=== PATIENT | male | born 1975 | race African-American/Black ===

== ENCOUNTER 2017-09-01 15:56 | Emergency (ER) | payer OTHER, SELFPAY ==
[2017-09-01] MEDS ORDERED: CYCLOBENZAPRINE 10 MG TAB ONE (17:01)
[2017-09-01] MEDS ORDERED: HYDROCODONE/APAP 10/325 TAB ONE (17:01)
[2017-09-01] MEDS ORDERED: KETOROLAC 30 MG/ML INJ ONE (17:01)
--- NOTE | 2017-09-01 17:41 | ER ---
Nurse's Notes [facility] Name: Yo Luis Age: 42 yrs Sex: Male : 1975 Arrival Date: 09/01/2017 Time: 15:59 Bed 27 Private MD: None, None Diagnosis: Strain of muscle and tendon of back wall of thorax;Strain of muscle and tendon of front wall of thorax Presentation: 09/01 16:01 Presenting complaint: Patient states: pain to left lateral aspect of chest that began aa5 Thursday. Pt denies SOB, denies cough. Pt denies known injury. Transition of care: patient was not received from another setting of care. Onset of symptoms was August 2017. Risk Assessment: Do you want to hurt yourself or someone else? Patient reports no desire to harm self or others. Initial Sepsis Screen: Does the patient meet any 2 criteria? No. Patient's initial sepsis screen is negative. Does the patient have a suspected source of infection? No. Patient's initial sepsis screen is negative. Care prior to arrival: None. 16:01 Method Of Arrival: Ambulatory aa5 16:01 Acuity: KENIA 3 aa5 Triage Assessment: 17:11 General: Appears in no apparent distress. well groomed, well developed, well nourished, rk2 Behavior is calm, cooperative. Pain: Complains of pain in left rib pain on palpation or with deep inspiration. Neuro: Level of Consciousness is alert, obeys commands, Oriented to person, place, time, situation. Respiratory: Airway is patent Respiratory effort is even, unlabored, Respiratory pattern is regular, symmetrical. Derm: Skin is pink, warm \T\ dry. Historical: - Allergies: 16:03 No Known Allergies; aa5 - PMHx: 16:03 Hypertension; Diabetes - NIDDM; aa5 - PSHx: 16:03 Hernia repair; aa5 - Immunization history:: Adult Immunizations unknown. - Social history:: Smoking status: Patient/guardian denies using tobacco. - Ebola Screening: : No symptoms or risks identified at this time. Screenin:10 Abuse screen: Denies threats or abuse. Nutritional screening: No deficits noted. rk2 Tuberculosis screening: No symptoms or risk factors identified. Fall Risk None identified. Assessment: 17:36 Reassessment: Pt. resting in room, pain has improved after medication... no needs rk2 voiced \T\ this time. 18:15 Reassessment: Pt has elevated BP \T\ DC... provider aware. Verbal order given for 0.1 mg rk2 clonidine. Vital Signs: 16:03 BP 185 / 117; Pulse 100; Resp 18 S; Temp 98.9(TE); Pulse Ox 97% on R/A; Weight 112.04 aa5 kg (R); Height 6 ft. 4 in. (193.04 cm) (R); Pain 8/10; 17:47 BP 196 / 118; Pulse 91; Resp 18; Pulse Ox 98% on R/A; rk2 18:30 BP 179 / 105; Pulse 86; Resp 17; Pulse Ox 97% on R/A; rk2 16:03 Body Mass Index 30.07 (112.04 kg, 193.04 cm) aa5 ED Course: 15:59 Patient arrived in ED. sb2 15:59 None, None is Private Physician. sb2 16:03 Triage completed. aa5 16:03 Arm band placed on. aa5 16:07 Kj Santiago NP is PHCP. pm1 16:07 Josse Cornejo MD is Attending Physician. pm1 16:32 Judy Saavedra, NORAH is Primary Nurse. rk2 17:10 Patient has correct armband on for positive identification. Bed in low position. Call rk2 light in reach. 18:39 No provider procedures requiring assistance completed. Patient did not have IV access rk2 during this emergency room visit. Administered Medications: 17:09 Drug: Bancroft 10 mg-325 mg 1 tabs Route: PO; rk2 18:40 Follow up: Response: No adverse reaction rk2 17:09 Drug: TORadol 60 mg Route: IM; Site: right deltoid; rk2 18:40 Follow up: Response: No adverse reaction rk2 17:10 Drug: Flexeril 10 mg Route: PO; rk2 18:40 Follow up: Response: No adverse reaction rk2 18:02 Drug: Catapres 0.1 mg Route: PO; rk2 18:37 Follow up: Response: No adverse reaction rk2 Outcome: 17:40 Discharge ordered by . pm1 18:39 Discharged to home ambulatory. rk2 18:39 Condition: improved 18:39 Discharge instructions given to patient, Prescriptions given X 3. 18:41 Patient left the ED. rk2 Signatures: Lesly Rosales RN RN aa5 Kj Santiago, CLAY DRY PRESS HELPER CLAY DRY PRESS HELPER pm1 Judy Saavedra RN RN rk2 Holli Rai sb2
--- NOTE | 2017-09-01 17:41 | EDPHYS ---
Physician Documentation [facility] Name: Yo Luis Age: 42 yrs Sex: Male : 1975 Arrival Date: 09/01/2017 Time: 15:59 Bed 27 Private MD: None, None ED Physician Josse Cornejo HPI: 09/01 17:00 This 42 yrs old Black Male presents to ER via Ambulatory with complaints of Left Rib pm1 Pain. 17:00 Onset: The symptoms/episode began/occurred 2 day(s) ago. The patient has not pm1 experienced similar symptoms in the past. The patient has not recently seen a physician. Patient with left rib and back pain onset Thursday from work related injury. 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 Patient felt the strain to his left rib area and left latissimus dorsi with ensuing pain. Patient did not want to report the injury in fear of getting fired and present here to the ER for treatment. No chest pain, shortness of breath, or fever. Historical: - Allergies: 16:03 No Known Allergies; aa5 - PMHx: 16:03 Hypertension; Diabetes - NIDDM; aa5 - PSHx: 16:03 Hernia repair; aa5 - Immunization history:: Adult Immunizations unknown. - Social history:: Smoking status: Patient/guardian denies using tobacco. - Ebola Screening: : No symptoms or risks identified at this time. ROS: 17:00 Constitutional: Negative for fever, chills, and weight loss, Eyes: Negative for injury, pm1 pain, redness, and discharge, ENT: Negative for injury, pain, and discharge, Neck: Negative for injury, pain, and swelling, Cardiovascular: Negative for chest pain, palpitations, and edema, Respiratory: Negative for shortness of breath, cough, wheezing, and pleuritic chest pain, Abdomen/GI: Negative for abdominal pain, nausea, vomiting, diarrhea, and constipation. 17:00 : Negative for injury, bleeding, discharge, and swelling, MS/Extremity: Negative for injury and deformity, Skin: Negative for injury, rash, and discoloration, Neuro: Negative for headache, weakness, numbness, tingling, and seizure. 17:00 Back: Positive for of the left subscapular area and left lateral ribs. Exam: 17:00 Constitutional: This is a well developed, well nourished patient who is awake, alert, pm1 and in no acute distress. Head/Face: Normocephalic, atraumatic. Eyes: Pupils equal round and reactive to light, extra-ocular motions intact. Lids and lashes normal. Conjunctiva and sclera are non-icteric and not injected. Cornea within normal limits. Periorbital areas with no swelling, redness, or edema. ENT: Nares patent. No nasal discharge, no septal abnormalities noted. Tympanic membranes are normal and external auditory canals are clear. Oropharynx with no redness, swelling, or masses, exudates, or evidence of obstruction, uvula midline. Mucous membranes moist. Neck: Trachea midline, no thyromegaly or masses palpated, and no cervical lymphadenopathy. Supple, full range of motion without nuchal rigidity, or vertebral point tenderness. No Meningismus. 17:00 Cardiovascular: Regular rate and rhythm with a normal S1 and S2. No gallops, murmurs, or rubs. Normal PMI, no JVD. No pulse deficits. Respiratory: Lungs have equal breath sounds bilaterally, clear to auscultation and percussion. No rales, rhonchi or wheezes noted. No increased work of breathing, no retractions or nasal flaring. Abdomen/GI: Soft, non-tender, with normal bowel sounds. No distension or tympany. No guarding or rebound. No evidence of tenderness throughout. 17:00 Skin: Warm, dry with normal turgor. Normal color with no rashes, no lesions, and no evidence of cellulitis. MS/ Extremity: Pulses equal, no cyanosis. Neurovascular intact. Full, normal range of motion. 17:00 Chest/axilla: Inspection: normal, Palpation: crepitus, is not appreciated, tenderness, that totally reproduces the patient's complaints, Focal left lateral ribs. 17:00 Back: normal spinal alignment noted, vertebral tenderness, is not appreciated, muscle spasm, is appreciated in the left subscapular area, left lattissimus dorsi. 17:00 Neuro: Orientation: is normal, Motor: moves all fours, strength is 5/5 in all extremities, Gait: Vital Signs: 16:03 BP 185 / 117; Pulse 100; Resp 18 S; Temp 98.9(TE); Pulse Ox 97% on R/A; Weight 112.04 aa5 kg (R); Height 6 ft. 4 in. (193.04 cm) (R); Pain 8/10; 17:47 BP 196 / 118; Pulse 91; Resp 18; Pulse Ox 98% on R/A; rk2 18:30 BP 179 / 105; Pulse 86; Resp 17; Pulse Ox 97% on R/A; rk2 16:03 Body Mass Index 30.07 (112.04 kg, 193.04 cm) aa5 MDM: 16:49 Patient medically screened. pm1 17:36 Data reviewed: vital signs. Data interpreted: Pulse oximetry: on room air is 97 %. pm1 Interpretation: normal. Counseling: I had a detailed discussion with the patient and/or guardian regarding: the historical points, exam findings, and any diagnostic results supporting the discharge/admit diagnosis, the need for outpatient follow up, to return to the emergency department if symptoms worsen or persist or if there are any questions or concerns that arise at home. 18:09 ED course: Patient normally takes his lisinopril each morning. Patient forgot today. pm1 Patient has his lisinopril at home. Patient requested medication for blood pressure. Administered Medications: 17:09 Drug: Cameron 10 mg-325 mg 1 tabs Route: PO; rk2 18:40 Follow up: Response: No adverse reaction rk2 17:09 Drug: TORadol 60 mg Route: IM; Site: right deltoid; rk2 18:40 Follow up: Response: No adverse reaction rk2 17:10 Drug: Flexeril 10 mg Route: PO; rk2 18:40 Follow up: Response: No adverse reaction rk2 18:02 Drug: Catapres 0.1 mg Route: PO; rk2 18:37 Follow up: Response: No adverse reaction rk2 Disposition: 09/01/17 17:40 Discharged to Home. Impression: Strain of muscle and tendon of back wall of thorax, Strain of muscle and tendon of front wall of thorax. - Condition is Stable. - Discharge Instructions: Muscle Strain. - Prescriptions for Naprosyn 500 mg Oral Tablet - take 1 tablet by ORAL route 2 times per day take with food; 30 tablet. Tylenol- Codeine #3 300-30 mg Oral Tablet - take 2 tablets by ORAL route every 6 hours As needed; 20 tablet. Cyclobenzaprine 10 mg Oral Tablet - take 1 tablet by ORAL route every 8 hours As needed; 30 tablet. - Medication Reconciliation Form, Thank You Letter, Prescription Opioid Use, Work release form form. - Follow up: Emergency Department; When: As needed; Reason: Worsening of condition. Follow up: Private Physician; When: 2 - 3 days; Reason: Recheck today's complaints, Continuance of care, Re-evaluation by your physician. - Problem is new. - Symptoms have improved. Addendum: 09/03/2017 12:18 Co-signature as Attending Physician, Josse Cornejo MD. g s Signatures: Lesly Rosales RN RN aa5 Kj Santiago, EVE SPORTS MANAGER pm1 Josse Cornejo MD MD Judy Saavedra RN RN rk2 Corrections: (The following items were deleted from the chart) 09/01 18:41 17:40 09/01/2017 17:40 Discharged to Home. Impression: Strain of muscle and tendon of rk2 back wall of thorax; Strain of muscle and tendon of front wall of thorax. Condition is Stable. Forms are Medication Reconciliation Form, Thank You Letter, Antibiotic Education, Prescription Opioid Use. Follow up: Emergency Department; When: As needed; Reason: Worsening of condition. Follow up: Private Physician; When: 2 - 3 days; Reason: Recheck today's complaints, Continuance of care, Re-evaluation by your physician. Problem is new. Symptoms have improved. pm1
[2017-09-01] MEDS ORDERED: cloNIDine HCl 0.1 MG TAB ONE (18:02)
== END 2017-09-01 18:41 | disposition home or self-care (01) ==
LOC: ER 15:56
DX: S29.012A Strain of muscle and tendon of back wall of thorax, initial encounter (principal); I10 Essential (primary) hypertension; E11.9 Type 2 diabetes mellitus without complications; X58.XXXA Exposure to other specified factors, initial encounter; Y93.89 Activity, other specified; Y92.9 Unspecified place or not applicable; Y99.0 Civilian activity done for income or pay
CPT/HCPCS: 96372; 99283

== ENCOUNTER 2022-03-28 13:35 | Emergency (ER) | payer SELFPAY ==
--- OUTSIDE RECORDS SUMMARY | 2022-03-28 13:41 | XMS REPORT | Continuity of Care Document ---
:[address] [facility] t Address [address] [place] [address] Care Team Providers Name Role Phone CHARLENE Attending Clinician Unavailable JoseL Downey Attending Clinician [phone] CHARLENE Admitting Clinician Unavailable Payers Payer Name Policy Type Policy Number Effective Date Expiration Date S ource Problems Condition Condition Condition Status Onset Resolution Last Treating Co mments Source Name Details Category Date Date Treatment Clinician Date Diabetes Diabetes Problem Active Sween y mellitus Mellitus 12-05 Commun i 00:00: ty [facility] Body mass Body Mass Problem Active Swe suzan index 30+ Index 30+ 9-08 Comm uni - obesity - Obesity 00:00: ty 00 [facility] Hypertensi Hypertensi Problem Active S weeny ve ve 12-05 Communi disorder Disorder 00:00: ty 00 [facility] Erectile Erectile Problem Active Sween y dysfunctio Dysfunctio 12-05 Co mmuni n n 00:00: [facility] Allergies, Adverse Reactions, Alerts This patient has no known allergies or adverse reactions. Social History Smoking Status Start Date Stop Date Source Never Smoker [facility] Medications Ordered Filled Start Stop Current Ordering Indication Dosage Frequency Signature Comments Components Source Medication Medication Date Date Medication? Clinician (SIG) Name Name Coreg 6.25 Coreg 6.25 No 1 BID Coreg 6.25 [place] mg tablet mg tablet mg tablet Communi Take 1 Take 1 Take 1 ty tablet tablet tablet Hospita twice a day twice a day twice a l by oral by oral day by Clinics route. route. oral route. Coreg 12.5 Coreg 12.5 No 1 BID Coreg 12.5 [place] mg tablet mg tablet mg tablet Communi Take 1 Take 1 Take 1 ty tablet tablet tablet Hospita twice a day twice a day twice a l by oral by oral day by Clinics route. route. oral route. Coreg 6.25 Coreg 6.25 No 1 BID Coreg 6.25 [facility] mg tablet mg tablet mg tablet Gordon Take 1 Take 1 Take 1 ty tablet tablet tablet Hospita twice a day twice a day twice a l by oral by oral day by Clinics route. route. oral route. Vital Signs Vital Name Observation Time Observation Value Comments Source BP Diastolic 2021-12-12 00:00:00 77 mm[Hg] [facility] Height 2021-12-12 00:00:00 76 [in_i] [facility] BMI (Body Mass 2021-12-12 00:00:00 29.8 kg/m2 [facility] BP Systolic 2021-12-12 00:00:00 150 mm[Hg] [facility] Body Weight 2021-12-12 00:00:00 3920 [oz_av] [facility] BP Diastolic 2021-12-05 00:00:00 98 mm[Hg] [facility] Height 2021-12-05 00:00:00 76 [in_i] [facility] BMI (Body Mass 2021-12-05 00:00:00 30.1 kg/m2 [facility] BP Systolic 2021-12-05 00:00:00 162 mm[Hg] [facility] Body Weight 2021-12-05 00:00:00 3952 [oz_av] [facility] Procedures This patient has no known procedures. Plan of Care Planned Activity Planned Date Details Comments Source Diagnostic Test 2021-12-05 CMP, serum or [facility] Pending 00:00:00 plasma [code = Hospital Clin ics CMP, serum or plasma] Diagnostic Test 2021-12-05 HbA1c (hemoglobin [facility] Pending 00:00:00 A1c), blood [code Hospital [facility]ics = HbA1c (hemoglobin A1c), blood] Diagnostic Test 2021-12-05 TSH, serum or [facility] Pending 00:00:00 plasma [code = Hospital Clin ics TSH, serum or plasma] Diagnostic Test 2021-12-05 CBC w/ auto diff [facility] Pending 00:00:00 [code = CBC w/ Hospital Clin ics auto diff] Diagnostic Test 2021-12-05 PSA, total, serum [facility] Pending 00:00:00 or plasma [code = Hospital C linics PSA, total, serum or plasma] Diagnostic Test 2021-12-05 lipid panel, serum [facility] Pending 00:00:00 [code = lipid Hospital Clini cs panel, serum] Encounters Start End Encounter Admission Attending Care Care Encounter Source Date/Time Date/Time Type Type Clinicians Facility Department ID 2021-12-17 2021-12-17 Outpatient DENAE_Ezio [facility] [id number] [place] 00:00:00 00:00:00 0920 [facility] 2021-12-12 2021-12-[address] [facility] [id number] [place] 00:00:00 00:00:00 0915 Commun i ty Hospita l [facility] 2021-12-12 2021-12-12 Jose L [facility] [place] - [place] 00:00:00 00:00:00 [facility] DO: [address] [facility] [address], HOSPITAL Clinic [place], [place], [address] DENAE , Ph. [phone] 2021-12-12 2021-12-[address] [facility] [id number] 00:00:00 00:00:00 Jose L [id number] 2021-12-05 2021-12-[address] [facility] [id number] 00:00:00 00:00:00 0908 Commun i ty Hosp[facility] l Clinics 2021-12-05 2021-12-05 [facility] [place] [facility] [place] 00:[facility]:00 00:00:00 [facility] DO: [address] [facility] [address], HOSPITAL Clinic [place], [place], [address] DENAE , Ph. [phone] 2021-12-05 2021-12-05 [facility] [id number] [facility]:00 00:00:00 Jose L [id number] Results This patient has no known results.
[2022-03-28] MEDS ORDERED: METOPROLOL TAR 25 MG TAB ONE (15:58)
[2022-03-28] MEDS ORDERED: ASPIRIN 81 MG CHEWABLE TABLET ONE (15:58)
[2022-03-28] MEDS ORDERED: cloNIDine HCL 0.1 MG TAB ONE (17:00)
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
--- NOTE | 2022-03-28 17:34 | ER ---
Nurse's Notes [facility] Name: Yo Luis Age: 46 yrs Sex: Male : 1975 Arrival Date: 03/28/2022 Time: 13:38 Bed 20 Private MD: Diagnosis: Essential (primary) hypertension-uncontrolled Presentation: 03/28 13:44 Chief complaint: Sent by [facility] for abnormal EKG. Pt denies SOB/CP. hb Coronavirus screen: At this time, the client does not indicate any symptoms associated with coronavirus-19. Risk Assessment: Do you want to hurt yourself or someone else? Patient reports no desire to harm self or others. Onset of symptoms was March 28, 2022. 13:44 Method Of Arrival: Ambulatory hb 13:44 Acuity: KENIA 3 hb 13:55 Ebola Screen: No symptoms or risks identified at this time. Initial Sepsis Screen: Does hb the patient meet any 2 criteria? No. Patient's initial sepsis screen is negative. Does the patient have a suspected source of infection? No. Patient's initial sepsis screen is negative. Historical: - Allergies: 13:54 No Known Allergies; hb - Home Meds: 13:54 carvedilol 12.5 mg oral tab 2 times per day [Active]; Aspirin Oral [Active]; hb - PMHx: 13:54 Diabetes - NIDDM; Hypertension; hb Screenin:[address] [facility] ED Fall Risk Assessment (Adult) History of falling in the last 3 months, mb9 including since admission No falls in past 3 months (0 pts) Confusion or Disorientation No (0 pts) Intoxicated or Sedated No (0 pts) Impaired Gait No (0 pts) Mobility Assist Device Used No (0 pt) Altered Elimination No (0 pt) Score/Fall Risk Level 0 - 2 = Low Risk Maintained a safe environment. Abuse screen: Denies threats or abuse. Nutritional screening: No deficits noted. Tuberculosis screening: No symptoms or risk factors identified. Assessment: 15:30 Reassessment: pt brought back to room. mb9 15:45 General: Appears in no apparent distress. comfortable, Behavior is calm, cooperative, mb9 appropriate for age. Pain: Denies pain. Neuro: Salomon Agitation-Sedation Scale (RASS): 0 - Alert and Calm Level of Consciousness is awake, alert, obeys commands, Oriented to person, place, time, situation, Appropriate for age Moves all extremities. Gait is steady, Speech is normal, Facial symmetry appears normal, Pupils are PERRLA, Intact Denies blurred vision dizziness, headache. Cardiovascular: Denies chest pain, Heart tones S1 S2 present Rhythm is sinus tachycardia. Respiratory: Airway is patent Respiratory effort is even, Respiratory pattern is tachypnea Breath sounds are clear bilaterally. GI: Abdomen is flat. : No signs and/or symptoms were reported regarding the genitourinary system. EENT: No signs and/or symptoms were reported regarding the EENT system. Derm: Skin is intact, Skin is dry, Skin is normal, Skin temperature is warm. 16:59 Pain: Denies pain. Neuro: Level of Consciousness is awake, alert, obeys commands, mb9 Oriented to person, place, time, situation, Appropriate for age Denies blurred vision dizziness, headache. Cardiovascular: Rhythm is sinus tachycardia. Respiratory: Airway is patent. Respiratory: pt intermittently coughing. Derm: Skin is intact, Skin is dry, Skin is normal, Skin temperature is warm. 17:35 Reassessment: No changes from previously documented assessment. Patient denies pain at mb9 this time. Patient states feeling better. Patient states symptoms have improved. Respiratory: Airway is patent. Vital Signs: 13:44 BP 178 / 108; Pulse 102; Resp 18; Temp 98.3; Pulse Ox 100% on R/A; Weight 109.32 kg; hb Height 6 ft. 5 in. (195.58 cm); Pain 0/10; 15:57 BP 185 / 115; Pulse 108; Resp 22; Pulse Ox 100% on R/A; mb9 16:41 BP 179 / 118; Pulse 104; Resp 20; Pulse Ox 100% on R/A; mb9 17:16 BP 167 / 118; Pulse 102; Resp 16; Pulse Ox 100% on R/A; Pain 0/10; mb9 17:50 BP 165 / 115; Pulse 102; Resp 18; Pulse Ox 100% ; mb9 13:44 Body Mass Index 28.58 (109.32 kg, 195.58 cm) ED Course: 13:38 Patient arrived in ED. rg4 13:51 Lorena Fitzgerald FNP-C is [facility]. snw 13:51 Oliverio Raza MD is Attending Physician. snw 13:54 Triage completed. hb 13:55 Arm band placed on. hb 13:57 EKG completed in triage. Results shown to MD. hb 14:00 Placed in gown. Bed in low position. Call light in reach. Side rails up X 1. mb9 15:49 Daphne Osborne, RN is Primary Nurse. mb9 16:05 Troponin High Sensitivity Sent. mb9 17:52 No provider procedures requiring assistance completed. Patient did not have IV access mb9 during this emergency room visit. Administered Medications: 15:57 Drug: Aspirin 81 mg Route: PO; mb9 16:28 Follow up: Response: No adverse reaction mb9 15:57 Drug: Metoprolol 25 mg Route: PO; mb9 16:28 Follow up: Response: No adverse reaction mb9 16:59 Drug: cloNIDine 0.2 mg Route: PO; mb9 17:14 Follow up: Response: No adverse reaction mb9 17:50 Drug: Norvasc (amlodipine) 2.5 mg Route: PO; mb9 Medication: 17:52 VIS not applicable for this client. mb9 Outcome: 17:33 Discharge ordered by MD. snw 17:52 Discharged to home ambulatory. mb9 17:52 Condition: stable 17:52 Discharge instructions given to patient, Instructed on discharge instructions, follow up and referral plans. Demonstrated understanding of instructions, follow-up care, medications, Prescriptions given X 1. 17:52 Patient left the ED. mb9 Signatures: Lorena Fitzgerald, SOFTWARE LICENSING EXECUTIVE-C SOFTWARE LICENSING EXECUTIVE-Csnw Gloria Singleton RN RN Dilcia Sheehan rg4 Daphne Osborne, RN RN mb9 Corrections: (The following items were deleted from the chart) 13:56 13:44 BP 178 / 108; Pulse 102bpm; Resp 18bpm; Pulse Ox 100% RA; Temp 98.3F; Pain 0/10; hb hb
[2022-03-28] MEDS ORDERED: AMLODIPINE 5 MG TAB ONE (17:47)
[2022-03-28 18:18] VITALS: TEMP 98.3; O2SAT 100
[2022-03-28 18:23] VITALS: BP 165/115
--- NOTE | 2022-03-30 19:08 | EKG ---
Test Date: 2022-03-28 Test Time: 13:51:29 Residential Door Unit Installer: HB MEASUREMENT RESULTS: Intervals: Rate: 107 OK: 164 QRSD: 110 QT: 366 QTc: 488 [place]: P: 47 OK: 164 QRS: 6 T: 87 INTERPRETIVE STATEMENTS: Sinus tachycardia Possible Left atrial enlargement Nonspecific T wave abnormality Abnormal ECG No previous ECG available for comparison Electronically Signed On 03-30-22 19:07:07 SOCIAL SCIENCE TEACHER by Paul Galeana
== END 2022-03-28 17:52 | disposition home or self-care (01) ==
LOC: ER 13:35
DX: I10 Essential (primary) hypertension (principal); E11.9 Type 2 diabetes mellitus without complications; Z79.82 Long term (current) use of aspirin
CPT/HCPCS: 36415; 84484; 93005; 99284

== ENCOUNTER 2023-09-03 13:09 | Inpatient (IN) | payer OTHER, SELFPAY ==
--- OUTSIDE RECORDS SUMMARY | 2023-09-03 13:12 | XMS REPORT | Continuity of Care Document ---
Author Name Unknown Address [address] [facility] [address] [place] [address] [facility] thconnect Address [address] [facility] [address] [place] [address] Care Team Providers Care Electrical Tests Supervisor Name Role Phone CHARLENE Attending Clinician Unavailable Jose L Philippe Attending Clinician [phone] CHARLENE Admitting Clinician Unavailable Payers Payer Name Policy Type Policy Number Effective Date Expirati on Date Source Problems Condition Name Condition Details Condition Category Status Onset Date Resolution Date Last Treatment Date Treating Clinician Comments Source Diabetes mellitus Diabetes Mellitus Problem Active 12-05 00:00: 00 [facility] Body mass index 30+ - obesity Body Mass Index 30+ - Obesity Problem Active 12-05 00:00: 00 [facility] Hypertensi ve disorder Hypertensi ve Disorder Problem Active 12-05 00:00: 00 [facility] Erectile dysfunctio n Erectile Dysfunctio n Problem Active 12-05 00:00: 00 [facility] Social History Smoking Status Start Date Stop Date Source Never Smoker [facility] Medications Ordered Medication Name Filled Medication Name Start Date Stop Date Current Medication? Ordering Clinician Indication Dosage Frequency Signature (SIG) Comments Components Source Coreg 6.25 mg tablet Take 1 tablet twice a day by oral route. Coreg 6.25 mg tablet Take 1 tablet twice a day by oral route. No 1 BID Coreg 6.25 mg tablet Take 1 tablet twice a day by oral route. [facility] Coreg 12.5 mg tablet Take 1 tablet twice a day by oral route. Coreg 12.5 mg tablet Take 1 tablet twice a day by oral route. No 1 BID Coreg 12.5 mg tablet Take 1 tablet twice a day by oral route. [facility] Coreg 6.25 mg tablet Take 1 tablet twice a day by oral route. Coreg 6.25 mg tablet Take 1 tablet twice a day by oral route. No 1 BID Coreg 6.25 mg tablet Take 1 tablet twice a day by oral route. [facility] Vital Signs Vital Name Observation Time Observation Value Comments S ource BP Diastolic 2021-12-12 00:00:00 77 mm[Hg] [facility] Height 2021-12-12 00:00:00 76 [in_i] [facility] BMI (Body Mass Index) 2021-12-12 00:00:00 29.8 kg/m2 [facility] BP Systolic 2021-12-12 00:00:00 150 mm[Hg] [facility] Body Weight 2021-12-12 00:00:00 3920 [oz_av] [facility] BP Diastolic 2021-12-05 00:00:00 98 mm[Hg] [facility] Height 2021-12-05 00:00:00 76 [in_i] [facility] BMI (Body Mass Index) 2021-12-05 00:00:00 30.1 kg/m2 [facility] BP Systolic 2021-12-05 00:00:00 162 mm[Hg] [facility] Body Weight 2021-12-05 00:00:00 3952 [oz_av] [facility] Plan of Care Planned Activity Planned Date Details Comments Source Diagnostic Test Pending 2021-12-05 00:00:00 CMP, serum or plasma [code = CMP, serum or plasma] [facility] Diagnostic Test Pending 2021-12-05 00:00:00 HbA1c (hemoglobin A1c), blood [code = HbA1c (hemoglobin A1c), blood] [facility] Diagnostic Test Pending 2021-12-05 00:00:00 TSH, serum or plasma [code = TSH, serum or plasma] [facility] Diagnostic Test Pending 2021-12-05 00:00:00 CBC w/ auto diff [code = CBC w/ auto diff] [facility] Diagnostic Test Pending 2021-12-05 00:00:00 PSA, total, serum or plasma [code = PSA, total, serum or plasma] [facility] Diagnostic Test Pending 2021-12-05 00:00:00 lipid panel, serum [code = lipid panel, serum] [facility] Encounters Start Date/Time End Date/Time Encounter Type Admission Type Attending [facility] Care Department Encounter ID Source 2023-03-12 13:18:57 2023-03-12 13:18:57 Outpatient SFA SFA [id number] Mayco Kumar 2022-11-26 11:57:13 2022-11-26 11:57:13 Outpatient SFA SFA [id number] Mayco Kumar 2022-08-16 14:10:01 2022-08-16 14:10:01 Outpatient SFA SFA [id number] Mayco Kumar 2022-06-05 13:16:25 2022-06-05 13:16:25 Outpatient SFA SFA [id number] Mayco Kumar 2022-04-30 13:25:04 2022-04-30 13:25:04 Outpatient SFA SFA [id number] Mayco Kumar 2022-04-29 16:04:16 2022-04-29 16:04:16 Outpatient SFA SFA [id number] Mayco Kumar 2022-04-15 10:29:49 2022-04-15 10:29:49 Outpatient SFA SFA [id number] Mayco Bruce José 2021-12-17 00:00:00 2021-12-17 00:00:00 Outpatient ERICKSON_R [facility] [id number] [facility] 2021-12-12 00:00:00 2021-12-12 00:00:00 Outpatient ERICKSON_R [facility] [id number] [place] [facility] 2021-12-12 00:00:00 2021-12-12 00:00:00 Jose L Philippe, DO: [address] [place] [address] , Ph. [facility], DR. PHILIPPE [id number] [facility] 2021-12-12 00:00:00 2021-12-12 00:00:00 Outpatient Jose L Philippe [facility] [id number] 2021-12-05 00:00:00 2021-12-05 00:00:00 Outpatient CHARLENE [facility] [id number] [facility] 2021-12-05 00:00:00 2021-12-05 00:00:00 Jose L Philippe, DO: [address] [place] [address] , Ph. [phone] [facility], [address] PHILIPPE [id number] [facility] 2021-12-05 00:00:00 2021-12-05 00:00:00 Outpatient Jose L Philippe [facility] [id number] Results Test Description Test Time Test Comments Results Result Co mments Source COMPREHENSIVE METABOLIC [id number] 02:04:45* Test Item Value Reference Range Interpretation Comme nts GLUCOSE (test code = 2217) 210 MG/DL 70-99 H BUN (test code = 2208) 21 MG/DL 6-20 H CREATININE (test code = 2214) 1.62 MG/DL 0.80-1.40 H eGFR (2020 CKD-EPI) (test code = 78959) 53 ML/MIN/1.73 >60 L The NKF-ASN Taskforc e recommends use of Cystatin C to confirm eGFR inadults at risk for CKD. [facility] offers eGFR with Cystatin C-Creatinineusing the 2020 CKD-EPI eGFR_creat-cystat equation (order code 3057) toincrease the accuracy of estimated GFR. For more information, contactAiMeiWeiur sales account representative or see announcement [email or web address] CALC BUN/CREAT (test code = 2234) 13 RATIO 6-28 SODIUM (test code = 2230) 142 MEQ/L 133-146 POTASSIUM (test code = 2227) 4.8 MEQ/L 3.5-5.4 CHLORIDE (test code = 2214) 104 MEQ/L 95-107 CARBON DIOXIDE (test code = 2205) 27 MEQ/L 19-31 CALCIUM (test code = 2208) 9.7 MG/DL 8.5-10.5 PROTEIN, TOTAL (test code = 2228) 7.6 G/DL 6.1-8.3 ALBUMIN (test code = 2200) 4.4 G/DL 3.5-5.2 CALC GLOBULIN (test code = 0) 3.2 G/DL 1.9-3.7 CALC A/G RATIO (test code = 2233) 1.4 RATIO 1.0-2.6 BILIRUBIN, TOTAL (test code = 2206) 0.6 MG/DL See_Comment [Automated me ssage] The system which generated this result transmitted reference range: <=1.2. The reference range was not used to interpret this result as normal/abnormal. ALKALINE PHOSPHATASE (test code = 2203) 77 U/L 40-118 AST (test code = 8) 13 U/L 9-50 ALT (test code = 2219) 16 U/L 5-50 UNLESS OTHERWISE INDICATED, ALL TESTING PERFORMED AT [facility] [address] [place] [address] TRUCK SAFETY INSPECTOR: YOUNG CARBAJAL M.D. CLIA NUMBER [id number] [place]. [id number] HEMOGLOBIN [id number] 05:30:27* Test Item Value Reference Range Interpretation Comme nts HEMOGLOBIN A1c (test code = 88558) 8.2 % 4.2-5.6 H [employer] GUIDELINES FOR HGB A1C: PREDIABETES/INCREASED RISK . . . . . . . 5.7-6.4% DIAGNOSIS OF DIABETES . . . . . . . . . >=6.5% WITH CONFIRMATION OR APPROPRIATE SYMPTOMS NOTE: ASSAY MAY BE AFFECTED BY HEMOGLOBINOPATHIES (SICKLE CELL ANEMIA, S-C DISEASE, OTHERS) OR ARTIFICIALLY LOWERED BY DECREASED RED CELL SURVIVAL (HEMOLYTIC ANEMIAS, BLOOD LOSS, ETC.). CONSIDER ALTERNATE TESTING OR LABORATORY CONSULTATION.
[2023-09-03 14:42] LABS: Absolute Eosinophils 0.1 K/uL (0-0.5); Absolute Lymphocytes (CBC) 1.5 K/uL (0.7-4.9); Absolute Monocytes 0.5 K/uL (0.1-1.3); Absolute Neutrophil 3.3 K/uL (1.8-8.0); Basophils % 0.6 % (0-1.3); Eosinophils % 2.2 % (0-4.4); Hematocrit 47.3 % (39.6-49.0); Hemoglobin 15.2 g/dL (13.6-17.9); Lymphocytes % 27.4 % (15.3-44.8); MCH 29.4 pg (27.0-35.0); MCHC 32.1 g/dL (32.0-36.0); MCV 91.6 fL (80-100); MPV 9.5 fL (7.6-11.3); Monocytes % 8.9 % (3.3-12.3); Neutrophils % 60.9 % (41.7-73.7); Nucleated Red Blood Cells % 0.1 % (0-0); Platelets 254 thou/uL (152-406); RBC Red Blood Cell Count 5.16 M/uL (4.33-5.43); Red Cell Distribution Width 13.7 % (12.1-15.2)
[2023-09-03 14:46] LABS: PT Prothrombin Time 12.8 SECONDS (9.5-12.5); Protime INR 1.17
[2023-09-03 15:02] LABS: Albumin 2.7 g/dL (3.4-5.0); Albumin/Globulin Ratio 0.7 (1.1-1.8); Anion Gap 7.4 mEq/L (5.0-15.0); Bilirubin Direct 0.3 mg/dL (0-0.2); Bilirubin Indirect, Calculated 0.3 mg/dL (0.2-0.8); Bilirubin Total 0.6 mg/dL (0.2-1.0); Magnesium 2.1 mg/dL (1.6-2.4); Potassium 3.4 mEq/L (3.5-5.1); Protein, Total 6.7 g/dL (6.4-8.2); Troponin High Sensitivity 33.6 pg/mL (<58.9)
[2023-09-03] MEDS ORDERED: FUROSEMIDE 40 MG/4 ML VIAL ONE (15:04)
--- NOTE | 2023-09-03 15:25 | RAD REPORT ---
EXAM DESCRIPTION: Tenzin Single View09/03/2023 2:17 pm CLINICAL HISTORY: CHEST PAIN COMPARISON: No comparisons TECHNIQUE: Portable AP view of the chest. FINDINGS: The lungs are clear apart from hazy mild opacification near the right costophrenic angle, may relate to superimposition of soft tissues or mild airspace opacification. No pneumothorax or eff usion. The cardiomediastinal contours are unremarkable. IMPRESSION: Questionable right basilar airspace opacification as above. No other acute cardiopulmona ry process.
--- NOTE | 2023-09-03 15:37 | ER ---
Nurse's Notes [facility] Name: Yo Luis Age: 48 yrs Sex: Male : 1975 Arrival Date: 09/03/2023 Time: 13:09 Bed 18 Private MD: Diagnosis: New onset CHF;Acute kidney failure, unspecified;Essential (primary) hypertension-uncontrolled Presentation: 09/02 13:34 Chief complaint: Patient states: BILATERAL ANKLE AND LEG SWELLING STARTED THIS WEEK. db DIARRHEA X 2 DAYS. STATES DID NOT TAKE BP MEDICATIONS TODAY. Coronavirus screen: Client denies travel out of the [place] in the last 14 days. At this time, the client does not indicate any symptoms associated with coronavirus-19. Ebola Screen: Patient negative for fever greater than or equal to 101.5 degrees Fahrenheit, and additional compatible Ebola Virus Disease symptoms Patient denies exposure to infectious person. Patient denies travel to an Ebola-affected area in the 21 days before illness onset. No symptoms or risks identified at this time. Initial Sepsis Screen: Does the patient meet any 2 criteria? No. Patient's initial sepsis screen is negative. Does the patient have a suspected source of infection? No. Patient's initial sepsis screen is negative. Risk Assessment: Do you want to hurt yourself or someone else? Patient reports no desire to harm self or others. Onset of symptoms was September 03, 2023. 13:34 Method Of Arrival: Ambulatory db 13:34 Acuity: KENIA 2 db Triage Assessment: 13:37 General: Appears in no apparent distress. uncomfortable, Behavior is calm, cooperative. db Pain: Complains of pain in right leg and left leg. Neuro: Level of Consciousness is awake, alert, obeys commands, Oriented to person, place, time, situation. Cardiovascular:. Respiratory: Airway is patent Respiratory effort is even, unlabored, Respiratory pattern is regular, symmetrical. Musculoskeletal: Swelling present in right leg and left leg. Historical: - Allergies: 13:37 No Known Allergies; db - Home Meds: 13:39 Atenolol Oral [Active]; Furosemide Oral [Active]; db - PMHx: 13:37 Diabetes - NIDDM; Hypertension; db - Immunization history:: Adult Immunizations unknown. - Infectious Disease History:: Denies. - Social history:: Smoking status: Patient denies any tobacco usage or history of. Screenin:19 [facility] ED Fall Risk Assessment (Adult) History of falling in the last 3 months, nj1 including since admission No falls in past 3 months (0 pts) Confusion or Disorientation No (0 pts) Intoxicated or Sedated No (0 pts) Impaired Gait No (0 pts) Mobility Assist Device Used No (0 pt) Altered Elimination No (0 pt) Score/Fall Risk Level 0 - 2 = Low Risk Oriented to surroundings, Maintained a safe environment, Hourly rounding (assess needs \T\ fall precautionary measures) done. Abuse screen: Denies threats or abuse. Denies injuries from another. Nutritional screening: No deficits noted. Tuberculosis screening: No symptoms or risk factors identified. Assessment: 15:15 General: Appears in no apparent distress. comfortable, Behavior is calm, cooperative, nj1 appropriate for age. Pain: Denies pain. Neuro: Level of Consciousness is awake, alert, obeys commands, Oriented to person, place, time, situation. Cardiovascular: Patient's skin is warm and dry. Cardiovascular: Reports. Cardiovascular: Respiratory: Airway is patent Respiratory effort is even, unlabored. Derm: Reports. Musculoskeletal: Reports. Musculoskeletal: Swelling present in right leg and left leg. Vital Signs: 13:34 BP 191 / 139; Pulse 82; Resp 18; Temp 98.2; Pulse Ox 100% ; Weight 117.93 kg; Height 6 db ft. 4 in. ; 15:15 BP 182 / 113; Pulse 82; Resp 16; Pulse Ox 95% on R/A; nj1 15:55 BP 188 / 115; Pulse 80; Resp 15; Pulse Ox 98% ; nj1 13:34 Body Mass Index 31.65 (117.93 kg, 193.04 cm) db ED Course: 13:12 Patient arrived in ED. rg4 13:17 Abby Nichols PA-C is PHCP. sb4 13:17 Oliverio Raza MD is Attending Physician. sb4 13:37 Triage completed. db 13:37 Arm band placed on right wrist. Patient placed in an exam room. db 14:01 Patient placed in an exam room, on a stretcher. bp 14:19 XRAY Chest (1 view) In Process Unspecified. EDMS 14:50 Lynette Lu, NORAH is Primary Nurse. nj1 15:14 EKG done, by ED staff, reviewed by Abby Nichols PA-C. jg11 15:14 Inserted saline lock: 20 gauge in left antecubital area, using aseptic technique. Blood jg11 collected. 15:14 Initial lab(s) drawn, by ED staff, sent to lab. jg11 15:15 Door closed. Noise minimized. Lights dimmed. Warm blanket given. Pillow given. Client jg11 placed on continuous cardiac and pulse oximetry monitoring. NIBP monitoring applied. manager monitoring on. Pulse ox on. NIBP on. 15:21 Patient has correct armband on for positive identification. Bed in low position. Call nj1 light in reach. Adult w/ patient. Provided Education on: call light, fall precautions. 15:35 Wilbert Raza MD is Hospitalizing Provider. sb4 15:51 UAM Sent. jg11 15:51 UDS Sent. jg11 15:51 Urine collected: clean catch specimen, clear. jg11 16:10 Assisted with urinal. jg11 17:51 Assisted with urinal. jg11 17:51 Repeat lab(s) drawn. by me, sent to lab. jg11 07 02:04 No provider procedures requiring assistance completed. Patient admitted, IV remains in tm6 place. 08:38 Primary Nurse role handed off by Lynette Lu RN eb Administered Medications: 09/02 15:11 Drug: Furosemide IVP 40 mg IVP once; give over 2 minutes Route: IVP; Site: left [facility] antecubital; 15:55 Follow up: Response: No adverse reaction nj1 15:54 Drug: hydrALAZINE IVP 10 mg IVP once Route: IVP; Site: left antecubital; nj Medication: 09/03 02:04 VIS not applicable for this client. tm6 Outcome: 09/02 15:36 Decision to Hospitalize by Provider. sb4 09/03 02:04 Admitted to ER Hold. [facility]. tm6 Condition: stable Instructed on the need for admit, 12:02 Patient left the ED. hb Signatures: Dispatcher [employer] EDMS Gloria Singleton RN RN hb Garcia, Rubi rg4 Hay Aleman RN RN bp Suzanne Ross Danielle, RN RN Abby Braden PA-C PAGabeC sb4 Lynette Lu RN RN nj1 Kiara Hernandez RN RN tm6 Marcus Vora jg11 Corrections: (The following items were deleted from the chart) 09/02 13:39 13:34 Acuity: KENIA 3 db db
--- NOTE | 2023-09-03 15:37 | EDPHYS ---
Physician Documentation [facility] Name: Yo Luis Age: 48 yrs Sex: Male : 1975 Arrival Date: 09/03/2023 Time: 13:09 Bed 18 Private MD: ED Physician Oliverio Raza HPI: 09/02 13:41 This 48 yrs old Black Male presents to ER via Ambulatory with complaints of Leg sb4 Swelling. 13:41 patient states that his legs have been swollen for about 1 week now. he states that he sb4 has been elevating them and using compression socks, but they are not improving. he reports swelling all the way up to his thighs. he denies any sob. he does also report swelling in his abdomen. he states he has been on lasix for several years now but does not know the dosage, denies history of CHF. Historical: - Allergies: 13:37 No Known Allergies; db - Home Meds: 13:39 Atenolol Oral [Active]; Furosemide Oral [Active]; db - PMHx: 13:37 Diabetes - NIDDM; Hypertension; db - Immunization history:: Adult Immunizations unknown. - Infectious Disease History:: Denies. - Social history:: Smoking status: Patient denies any tobacco usage or history of. ROS: 13:41 Constitutional: Negative for fever, chills, and weight loss, sb4 13:41 Cardiovascular: Positive for edema, 13:41 Abdomen/GI: 13:41 Abdomen/GI: Positive for diarrhea, 13:41 All other systems are negative, Exam: 13:41 Constitutional: This is a well developed, well nourished patient who is awake, alert, sb4 and in no acute distress. Head/Face: Normocephalic, atraumatic. Eyes: Extra-ocular motions intact. Periorbital areas with no swelling, redness, or edema. ENT: Mucous membranes moist. Respiratory: Lungs have equal breath sounds bilaterally, clear to auscultation and percussion. No rales, rhonchi or wheezes noted. No increased work of breathing, no retractions or nasal flaring. Abdomen/GI: Soft, non-tender, no distension. Skin: Warm, dry with normal turgor. Normal color with no rashes, no lesions, and no evidence of cellulitis. MS/ Extremity: Pulses equal, no cyanosis. Neurovascular intact. Full, normal range of motion. 13:41 Cardiovascular: Rate: normal, Rhythm: regular, Pulses: no pulse deficits are appreciated, Heart sounds: normal, Edema: pedal edema, ankle edema, 2+ edema up to thighs bilaterally, 13:43 Cardiovascular: JVD: is not appreciated, sb4 Vital Signs: 13:34 BP 191 / 139; Pulse 82; Resp 18; Temp 98.2; Pulse Ox 100% ; Weight 117.93 kg; Height 6 db ft. 4 in. ; 15:15 BP 182 / 113; Pulse 82; Resp 16; Pulse Ox 95% on R/A; nj1 15:55 BP 188 / 115; Pulse 80; Resp 15; Pulse Ox 98% ; nj1 13:34 Body Mass Index 31.65 (117.93 kg, 193.04 cm) db MDM: 13:33 Patient medically screened. sb4 15:35 Data reviewed: vital signs, nurses notes, lab test result(s), EKG, radiologic studies, sb4 and as a result, I will admit patient. Care significantly affected by the following chronic conditions: Diabetes, Hypertension. Counseling: I had a detailed discussion with the patient and/or guardian regarding the historical points, exam findings, and any diagnostic results supporting the discharge/admit diagnosis, lab results, radiology results, the need for further work-up and treatment in the hospital. 09/02 13:40 Order name: Basic Metabolic Panel; Complete Time: 15:07 4 09/02 13:40 Order name: CBC with Diff; Complete Time: 14:45 sb4 09/02 13:40 Order name: LFT's; Complete Time: 15:07 sb4 09/02 13:40 Order name: Magnesium; Complete Time: 15:07 sb4 09/02 13:40 Order name: NT PRO-BNP; Complete Time: 15:07 sb4 09/02 13:40 Order name: PT-INR; Complete Time: 14:46 sb4 09/02 13:40 Order name: Troponin HS; Complete Time: 15:07 sb4 09/02 15:43 Order name: UDS; Complete Time: 16:09 sb4 09/02 15:43 Order name: UAM; Complete Time: 16:07 sb4 09/02 17:28 Order name: Ur Protein EDMS 06/06 17:28 Order name: Urinalysis W/Microscopic EDMS 09/02 17:28 Order name: Basic Metabolic Panel EDMS 09/02 17:28 Order name: Basic Metabolic Panel EDMS 09/02 17:28 Order name: Basic Metabolic Panel EDMS 09/02 17:28 Order name: Basic Metabolic Panel EDMS 09/02 17:28 Order name: Basic Metabolic Panel EDMS 09/02 17:28 Order name: Basic Metabolic Panel EDMS 09/02 17:28 Order name: CBC with Automated Diff EDMS 09/02 17:28 Order name: CBC with Automated Diff; Complete Time: 13:12 EDMS 09/02 17:28 Order name: CBC with Automated Diff EDMS 09/02 17:28 Order name: CBC with Automated Diff EDMS 09/02 17:28 Order name: CBC with Automated Diff EDMS 09/02 17:28 Order name: CBC with Automated Diff EDMS 09/02 17:28 Order name: Hemoglobin A1c EDMS 09/02 17:28 Order name: Hemoglobin A1c; Complete Time: 13:12 EDMS 09/02 17:28 Order name: Lipid Profile EDMS 09/02 17:28 Order name: Lipid Profile; Complete Time: 13:12 EDMS 09/02 17:28 Order name: Magnesium EDMS 09/02 17:28 Order name: Magnesium; Complete Time: 13:12 EDMS 09/02 17:28 Order name: Magnesium EDMS 09/02 17:28 Order name: Magnesium EDMS 09/02 17:28 Order name: Magnesium EDMS 09/02 17:28 Order name: Magnesium EDMS 09/02 17:28 Order name: T4 Free EDMS 09/02 17:28 Order name: T4 Free; Complete Time: 13:12 EDMS 09/02 17:28 Order name: Thyroid Stimulating Hormone EDMS 09/02 17:28 Order name: Thyroid Stimulating Hormone; Complete Time: 13:12 EDMS 09/02 17:28 Order name: Troponin High Sensitivity EDMS 09/02 17:28 Order name: Troponin High Sensitivity; Complete Time: 18:15 EDMS 09/02 17:28 Order name: Troponin High Sensitivity; Complete Time: 13:12 EDMS 09/02 17:28 Order name: Creatine Phosphokinase; Complete Time: 13:12 EDMS 09/02 17:28 Order name: Uric Acid; Complete Time: 13:12 EDMS 09/02 21:32 Order name: Glucose, Ancillary Testing; Complete Time: 21:33 EDMS 09/03 08:49 Order name: Glucose, Ancillary Testing; Complete Time: 13:12 EDMS 09/03 09:35 Order name: Comprehensive Metabolic Panel; Complete Time: 13:12 EDMS 09/03 11:45 Order name: Glucose, Ancillary Testing; Complete Time: 13:12 EDMS 09/02 13:40 Order name: XRAY Chest (1 view); Complete Time: 15:28 sb4 09/02 17:24 Order name: Echo with Doppler EDMS 09/02 17:24 Order name: Extrem Venous W Compress Dl; Complete Time: 19:14 EDMS 09/02 13:40 Order name: EKG; Complete Time: 13:41 sb4 09/02 13:40 Order name: Cardiac monitoring; Complete Time: 14:50 sb4 09/02 13:40 Order name: EKG - Nurse/Tech; Complete Time: 15:14 sb4 09/02 13:40 Order name: IV Saline Lock; Complete Time: 14:52 sb4 09/02 13:40 Order name: Labs collected and sent; Complete Time: 14:52 sb4 09/02 13:40 Order name: O2 Per Protocol; Complete Time: 14:51 sb4 09/02 13:40 Order name: O2 Sat Monitoring; Complete Time: 14:51 sb4 EC:15 Rate is 82 beats/min. Rhythm is regular, Normal Sinus Rhythm. ME interval is normal at sb4 190 msec. QRS interval is normal at 110 msec. QT interval is normal at 404 msec. Clinical impression: NSR w/ Non-specific ST/T Changes and incomplete left bundle branch block. Interpreted by me. Reviewed by me. Administered Medications: 15:11 Drug: Furosemide IVP 40 mg IVP once; give over 2 minutes Route: IVP; Site: left la1 antecubital; 15:55 Follow up: Response: No adverse reaction nj1 15:54 Drug: hydrALAZINE IVP 10 mg IVP once Route: IVP; Site: left antecubital; nj Disposition: 09/03 14:05 Co-signature as Attending Physician, Oliverio Raza MD I reviewed the patient's care rn provided by the Advanced Practice Provider and agree with the diagnosis and treatment plan. Disposition Summary: 09/03/23 15:36 Hospitalization Ordered Notes: Hospitalization Status: Inpatient Admission sb4 Provider: Wilbert Raza sb4 Condition: Fair sb4 Problem: new sb4 Symptoms: are unchanged sb4 Bed/Room Type: Standard sb4 Location: Telemetry/MedSurg (Inpatient)(09/04/23 10:53) ja1 Room Assignment: 405(09/04/23 10:53) [facility] Diagnosis - New onset CHF sb4 - Acute kidney failure, unspecified sb4 - Essential (primary) hypertension - uncontrolled sb4 Forms: - Medication Reconciliation Form sb4 - SBAR form sb4 - Leadership Thank You Letter sb4 Signatures: Dispatcher [employer] EDMS Oliverio Raza MD MD rn Aguilar, Jose, RN RN ja1 Leticia Hawkins RN RN lg3 Jessica Santiago RN RN db Brown, Sophia, PA-C PA-C sb4 Lynette Lu RN RN nj1 Corrections: (The following items were deleted from the chart) 09/02 13:43 13:41 Constitutional: This is a well developed, well nourished patient who is awake, sb4 alert, and in no acute distress. Head/Face: Normocephalic, atraumatic. Eyes: Extra-ocular motions intact. Periorbital areas with no swelling, redness, or edema. ENT: Mucous membranes moist. Respiratory: Lungs have equal breath sounds bilaterally, clear to auscultation and percussion. No rales, rhonchi or wheezes noted. No increased work of breathing, no retractions or nasal flaring. Abdomen/GI: Soft, non-tender, no distension. Skin: Warm, dry with normal turgor. Normal color with no rashes, no lesions, and no evidence of cellulitis. MS/ Extremity: Pulses equal, no cyanosis. Neurovascular intact. Full, normal range of motion. sb4 15:43 15:43 URINE DRUG SCREEN+UC.LAB.BRZ ordered. EDMS EDMS 15:43 15:43 Urinalysis W/Microscopic+U.LAB.BRZ ordered. EDWY EDMS 20:05 15:36 Telemetry/MedSurg (Inpatient) sb4 lg3 20: 15:36 sb4 lg3 09/03 10:53 06/06 20:05 [facility] ER HOLD lg3 ja1 09/03 10:53 09/02 20:05 ERHOLD- lg3 ja1
[2023-09-03] MEDS ORDERED: HYDRALAZINE HCL 20 MG/ML VIAL ONE ×2 (15:50→20:01)
[2023-09-03 16:05] LABS: Specific Gravity 1.009 (1.005-1.030); Sqamous Epithelial None Seen /HPF (None Seen); Urine Bacteria None Seen /HPF (<20); Urine Bilirubin NEGATIVE (Negative); Urine Blood Negative (Negative); Urine Clarity Clear (Clear); Urine Color Colorless (Yellow); Urine Culture Reflex Order NOT NEEDED; Urine Glucose 4+ (Over) (Negative); Urine Ketones NEGATIVE (Negative); Urine Micro Reflex YN NO BILL MICROSCOPIC; Urine Nitrite NEGATIVE (Negative); Urine Protein 1+ (Negative); Urine RBC <5 /HPF (None Seen); Urine Urobilinogen Normal (Normal); Urine WBC <5 /HPF (<5); Urine Yeast (Budding) Trace /HPF (None Seen); Urine pH 7.5 (5.0-7.0)
[2023-09-03 16:08] LABS: Barbiturates NEGATIVE (NEGATIVE); Benzodiazepines NEGATIVE (NEGATIVE); Cocaine NEGATIVE (NEGATIVE); METHAMPHETAM NEGATIVE (NEGATIVE); Methadone NEGATIVE (NEGATIVE); Opiates NEGATIVE (NEGATIVE); Phencyclidine NEGATIVE (NEGATIVE); THC Cannibis NEGATIVE (NEGATIVE)
--- NOTE | 2023-09-03 17:46 | P.HP ---
Certification for Inpatient Patient admitted to: Inpatient With expected LOS: >2 Midnights Patient will require the following post-hospital care: None Practitioner: I am a practitioner with admitting privileges, knowledge of patient current condition, hospital course, and medical plan of care. Services: Services provided to patient in accordance with Admission requirements found in Title 42 Section 412.3 of the Code of Federal Regulations Patient History Date of Service: 09/03/23 Reason for admission: MARSHA, anasarca, hypertension History of Present Illness: 48-year-old male with history of fwv-uwxufgb-hcmuvypve diabetes, hypertension presents emergency department with chief complaint of lower extremity edema. He reports he has noticed increasing edema in his lower extremities bilaterally over the course of the last 1 week, he also reports a 27 pound weight gain in the last 2 weeks. He reports that he felt as if his medications were contribu ting to his lower extremity edema so he stopped taking his atenolol and furosemide for the last 4 to 5 days. He denies any known history of CHF, only knows about high blood pressure and diabetes. He was evaluated in the emergency department labs are significant for potassium 3.4 creatinine 2.02 glucose 237 AST 90 ALT 216 BNP 5220 blood pressure markedly elevated 199/120 when I saw him. Patient denies any chest pain, dizziness/lightheadedness or other symptoms. He has edema extending all the way up to his thighs on both legs. Patient has been admitted to the hospital for suspected CHF exacerbation, anasarca, severe hypertension, MARSHA. Allergies No Known Allergies Allergy (Unverified 09/01/17 18:45) - Past Medical/Surgical History -: Hypertension -: Xao-sdbiecz-fxlfxwxnv diabetes -: None Psychosocial/ Personal History: Lives at home with his son, works in maintenance at the [employer] - Family History Father -: Hypertension Mother -: Hypertension - Social History Smoking Status: Never smoker Alcohol use: No CD- Drugs: No Caffeine use: Yes Place of Residence: Home Review of Systems 10-point ROS is otherwise unremarkable Cardiovascular: Edema Physical Examination - Physical Exam General: Alert, In no apparent distress, Oriented x3 HEENT: Atraumatic, PERRLA, Mucous membr. moist/pink Neck: Supple, 2+ carotid pulse no bruit, No LAD Respiratory: Clear to auscultation bilaterally, Normal air movement Cardiovascular: Regular rate/rhythm, Normal S1 S2, Edema (2-3+ edema of the lower extremities to the level of the thighs bilaterally) Gastrointestinal: Normal bowel sounds, No tenderness Musculoskeletal: No tenderness Integumentary: No rashes Neurological: Normal speech, Normal strength at 5/5 x4 extr, Normal tone, Normal affect - Studies Laboratory Data (last 24 hrs) 09/03/23 09/03/23 09/03/23 Unknown 14:31 14:31 WBC 5.50 Hgb 15.2 Hct 47.3 Plt Count 254 PT 12.8 H INR 1.17 Sodium Potassium BUN Creatinine Glucose Uric Acid Cancelled Magnesium Total Bilirubin AST ALT Alkaline Phosphatase 09/03/23 14:31 WBC Hgb Hct Plt Count PT INR Sodium 136 Potassium 3.4 L BUN 27 H Creatinine 2.02 H Glucose 337 H Uric Acid Magnesium 2.1 Total Bilirubin 0.6 AST 90 H ALT 216 H Alkaline Phosphatase 117 Assessment and Plan - Plan Assessment: Severe uncontrolled hypertension Anasarca, lower extremity edema suspect underlying CHFunknown EF Diabetes mellitus type [id number]-wuykywiti with hyperglycemia Acute kidney injury Elevated LFTs Plan: Severe uncontrolled hypertension Anasarca, lower extremity edema suspect underlying CHFunknown EF Reports he is taking atenolol at homeunknown dose Will start carvedilol for now Cardiology consulted and echo ordered Start lasix IV for diuresis Diabetes mellitus type 9gqk-wpypauj-olojxwaif with hyperglycemia ACHS Accu-Chek, sliding scale insulin A1c in the morning Acute kidney injury Elevated LFTs Suspect this is related to significant volume overload Continue diuresis, repeat chemistries including LFTs in the morning DVT PPX:Heparin subq Code status:Full Discharge Plan: Home Plan to discharge in: 72 Hours - Advance Directives Does patient have a Living Will: No Does patient have a Durable POA for Healthcare: No - Code Status/Comfort Care Code Status Assessed: Yes (Full code) Critical Care: No Time Spent Managing Pts Care (In Minutes): 70
[2023-09-03] MEDS: carvediloL 12.5 MG TAB PO SCH (18:00)
[2023-09-03 18:06] VITALS: BMI 31.6
--- NOTE | 2023-09-03 19:13 | RAD REPORT ---
EXAM DESCRIPTION: US - Extrem Venous W Compress Dl - 09/03/2023 5:50 pm CLINICAL HISTORY: Bilateral lower extremity edema COMPARISON: None. TECHNIQUE: Real-time sonographic evaluation of the bilateral lower extremity deep venous systems was performed. FINDINGS: Normal compressibility, flow augmentation, phasic flow and spontaneous flow is identified in both the left and right lower extremity deep venous systems. No intraluminal filling defects seen. IMPRESSION: No DVT in either lower extremity.
[2023-09-03] MEDS: HYDRALAZINE HCL 20 MG/ML VIAL IV PRN (20:05)
[2023-09-03] MEDS ORDERED: HEPARIN 5000 UNIT/ML 1 ML VIAL ONE (20:45)
[2023-09-03] MEDS: HEPARIN 5000 UNIT/ML 1 ML VIAL SQ SCH (21:00)
[2023-09-04] MEDS: FUROSEMIDE 40 MG/4 ML VIAL IV SCH (01:00)
[2023-09-04] MEDS ORDERED: FUROSEMIDE 40 MG/4 ML VIAL ONE ×2 (01:12→09:14)
[2023-09-04] MEDS: HYDROCODONE/APAP 5/325 MG TAB PO ONE (01:35)
[2023-09-04] MEDS ORDERED: HYDROCODONE/APAP 5/325 MG TAB ONE (01:38)
[2023-09-04] MEDS ORDERED: carvediloL 6.25 MG TAB ONE ×2 (05:03→06:47)
[2023-09-04] MEDS ORDERED: HYDRALAZINE HCL 20 MG/ML VIAL ONE (05:03)
[2023-09-04 05:12] LABS: Absolute Eosinophils 0.2 K/uL (0-0.5); Absolute Lymphocytes (CBC) 1.3 K/uL (0.7-4.9); Absolute Monocytes 0.4 K/uL (0.1-1.3); Absolute Neutrophil 3.5 K/uL (1.8-8.0); Basophils % 0.8 % (0-1.3); Eosinophils % 3.7 % (0-4.4); Hematocrit 44.4 % (39.6-49.0); Hemoglobin 14.7 g/dL (13.6-17.9); Lymphocytes % 24.3 % (15.3-44.8); MCH 29.9 pg (27.0-35.0); MCV 90.5 fL (80-100); MPV 9.1 fL (7.6-11.3); Monocytes % 7.9 % (3.3-12.3); Neutrophils % 63.3 % (41.7-73.7); Platelets 239 thou/uL (152-406); RBC Red Blood Cell Count 4.91 M/uL (4.33-5.43); Red Cell Distribution Width 13.5 % (12.1-15.2)
[2023-09-04 05:31] LABS: Magnesium 1.6 mg/dL (1.6-2.4); Thyroid Stimulating Hormone 1.73 uIU/mL (0.358-3.740); Troponin High Sensitivity 36.2 pg/mL (<58.9); Uric Acid 7.9 mg/dL (3.5-7.2)
[2023-09-04] MEDS: carvediloL 12.5 MG TAB PO ONE (06:33)
--- NOTE | 2023-09-04 08:58 | P.CNS ---
Date of Consult: 09/04/23 Chief Complaint: MARSHA, anasarca, hypertension History of Present Illness: Patient with PMH of hypertension presented with worsening BLE and SOB, denies any other cardiac symptoms, he has history of HTN and he has not been complaint with medications. 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 moist/pink, EOMI, Sclerae nonicteric Neck: Supple, 2+ carotid pulse no bruit, No LAD, Without JVD or thyroid abnormality Respiratory: Normal air movement, Crackles/rales Cardiovascular: Regular rate/rhythm, Normal S1 S2, Edema (+2 to bilateral lower extremities.) Gastrointestinal: Normal bowel sounds, No tenderness Musculoskeletal: No tenderness Integumentary: No rashes Neurological: Normal gait, Normal speech, Normal tone, Normal affect Lymphatics: No axilla or inguinal lymphadenopathy Laboratory Data (last 24 hrs) 09/03/23 09/03/23 09/03/23 14:31 14:31 14:31 WBC 5.50 Hgb 15.2 Hct 47.3 Plt Count 254 PT 12.8 H INR 1.17 Sodium 136 Potassium 3.4 L BUN 27 H Creatinine 2.02 H Glucose 337 H Magnesium 2.1 Total Bilirubin 0.6 AST 90 H ALT 216 H Alkaline Phosphatase 117 - Problems (1) Acute heart failure Current Visit: Yes Status: Acute Plan: get Echo, NYHA 3, Lasix 40 mg IV q8 monitor input and output and correct electrolytes. (2) HTN (hypertension) Current Visit: Yes Status: Acute Plan: agree with Coreg 25 mg po BID if stays high then start Losartan 25 mg daily and Spinolactone 25 mg daily (3) Diabetes Current Visit: Yes Status: Acute Plan: Patient A1C is high, need tight glycemic control.
[2023-09-04] MEDS ORDERED: HEPARIN 5000 UNIT/ML 1 ML VIAL ONE (09:14)
[2023-09-04 09:26] LABS: Albumin 2.3 g/dL (3.4-5.0); Albumin/Globulin Ratio 0.6 (1.1-1.8); Anion Gap 6.4 mEq/L (5.0-15.0); Bilirubin Total 0.8 mg/dL (0.2-1.0); Globulin 3.6 g/dL (2.3-3.5); Potassium 3.4 mEq/L (3.5-5.1); Protein, Total 5.9 g/dL (6.4-8.2)
--- NOTE | 2023-09-04 14:36 | P.PN ---
Date of Service: 09/04/23 Subjective: LE edema improving Feeling better no acute events overnight BP still running high ROS: 10 point ROS as noted above, otherwise negative Physical exam GEN: Alert, oriented, NAD HEENT: Normal conjunctiva, sclera anicteric CV: Regular rate and rhythm, Improving LE edema, 1-2+ to the level of the thighs Pulm: Nonlabored respirations on room air ABD: Soft, nontender, nondistended MSK: No joint tenderness Integumentary: No rashes Neuro: Normal speech, normal affect Vitals reviewed Assessment: Severe uncontrolled hypertension Anasarca, lower extremity edema suspect underlying CHFunknown EF Diabetes mellitus type 4iqy-lzaugqx-[id number] with hyperglycemia Acute kidney injury Elevated LFTs Plan: Severe uncontrolled hypertension Anasarca, lower extremity edema suspect underlying CHFunknown EF Reports he is taking atenolol 100mg at home Will start carvedilol 25mg BID for now Cardiology consulted and echo ordered-following Continue lasix 40mg IV q8 Diuresing well-7 liters out overnight Diabetes mellitus type 1eyr-klastha-fuzliefqf with hyperglycemia ACHS Accu-Chek, sliding scale insulin A1c 10 Acute kidney injury Elevated LFTs Suspect this is related to significant volume overload Continue diuresis, repeat chemistries including LFTs in the morning Lfts improving DVT PPX:Heparin subq Code status:Full Discharge Plan: Home Plan to discharge in: 72 Hours Time Spent Managing Pts Care (In Minutes): 35 <Arun Fernandez - Last Filed: 09/04/23 14:36> Patient seen and examined on rounds this morning with APPLICATION SUPPORT Rebecca. I performed a substantial part of the MDM during this patient's care today as noted above in the plan of care. I agree with plan of care as noted above with the following additions / corrections: UOP with 7L since yesterday feels much improvement in lower extremity edema, but still having quite a bit left BP slightly better reports he's been on coreg and HCTZ before, was eventually switched to atenolol and had much better control with monotherapy has been on lisinopril in past and said it seemed to make his BP worse denies any sleep apnea symptoms HTN for several years now echo ordered <Wilbert Raza - Last Filed: 09/04/23 19:57>
[2023-09-04] MEDS ORDERED: GLUCAGON 1 MG/VIAL IM PRN (16:10)
[2023-09-04] MEDS ORDERED: D10W 250 ML BAG IV PRN (16:10)
[2023-09-04] MEDS: carvediloL 25 MG TAB PO SCH (16:42)
[2023-09-04] MEDS: INSULIN REGULAR (HUMAN) 100 UNIT/ML SQ SCH (16:42)
--- NOTE | 2023-09-04 17:21 | P.CNS ---
Date of Consult: 09/04/23 Reason for Consult: Renal insufficiency, fluid overload Requesting Physician: Arun Fernandez Chief Complaint: MARSHA, anasarca, hypertension History of Present Illness: 48-year-old AA male with history of ekd-[id number]-[id number] Type II uncontrolled diabetes for 5 plus years, chronic hypertension who presented to the emergency department with new onset weight gain of over 20 lbs, lower extremity edema and abdominal distention, He reports stopping takin some of his meds in the past few days as he was not sure if they were contributing. He acknowledges taking NSAIDs for some of the swelling related LE discomfort. 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, works in maintenance at [employer] - Family History Father Medical History: Hypertension Mother Medical History: Hypertension - Social History Alcohol use: No CD- Drugs: No Caffeine use: Yes Place of Residence: Home Review of Systems As per HPI Physical Examination Temp Pulse Resp BP Pulse Ox 97.4 F 89 23 H 185/105 H 96 09/04/23 16:00 09/04/23 16:00 09/04/23 16:00 09/04/23 16:00 09/04/23 16:00 General: In no apparent distress, Oriented x3 HEENT: Atraumatic, Normocephalic Neck: Supple Respiratory: Normal air movement, Other (No rales or wheezes) Cardiovascular: Other (Mild tachy, cardiac murmur present, 2-3+ pitting edema below knee b/l) Gastrointestinal: No tenderness, Distended Musculoskeletal: No tenderness, Swelling Integumentary: No rashes Neurological: Normal speech, Normal tone, Normal affect Conclusions/Impression: A/P) 1. Abnormal results of kidney function studies. Sub-acute Stage 1 MARSHA in the setting of possible CRS, recent NSAIDs use, other on underlying presumed CKD NOS 2nd to chronic uncontrolled DM and HTN 2. Volume overload, generalized edema 2nd to apparent acute CHF unspecified. UA shows no sig dipstick proteinuria although pt does have severe hypoalbuminemia that may also be contributory to 3rd space edema 3. Cont IV lasix diuretics as ordered by Cardiology, f/u TTE findings, I/Os, weights and BNP levels 4. Malignant HTN, hypertensive urgency with suspended end organ effects including hypertensive heart and kidney disease -add ARB to his regimen, Atenolol changed to Carvedilol. Will add additional medications as appropriate/indicated.
[2023-09-04] MEDS ORDERED: carvediloL 12.5 MG TAB PO SCH (18:00)
[2023-09-04] MEDS: POTASSIUM CL SA 10 MEQ TAB PO ONE (18:26)
[2023-09-04] MEDS: LOSARTAN POTASSIUM 50 MG TABLET PO SCH (20:09)
[2023-09-04] MEDS: INSULIN GLARGINE 100 UNIT/ML SQ SCH (20:15)
[2023-09-04 22:46] LABS: UR PROTEIN 52.6 mg/dL (<11.9); Urine Protein/Creatinine Ratio 1.59 ratio (<0.15)
[2023-09-05 07:13] LABS: Absolute Eosinophils 0.2 K/uL (0-0.5); Absolute Lymphocytes (CBC) 1.8 K/uL (0.7-4.9); Absolute Monocytes 0.6 K/uL (0.1-1.3); Absolute Neutrophil 3.1 K/uL (1.8-8.0); Basophils % 0.8 % (0-1.3); Eosinophils % 4.2 % (0-4.4); Hematocrit 43.3 % (39.6-49.0); Hemoglobin 14.3 g/dL (13.6-17.9); Lymphocytes % 30.9 % (15.3-44.8); MCHC 33.2 g/dL (32.0-36.0); MCV 90.6 fL (80-100); MPV 9.4 fL (7.6-11.3); Monocytes % 9.8 % (3.3-12.3); Neutrophils % 54.3 % (41.7-73.7); Platelets 228 thou/uL (152-406); RBC Red Blood Cell Count 4.78 M/uL (4.33-5.43); Red Cell Distribution Width 13.1 % (12.1-15.2)
[2023-09-05 07:23] LABS: Albumin 2.3 g/dL (3.4-5.0); Albumin/Globulin Ratio 0.6 (1.1-1.8); Anion Gap 5.4 mEq/L (5.0-15.0); Bilirubin Total 0.5 mg/dL (0.2-1.0); Globulin 3.7 g/dL (2.3-3.5); Magnesium 1.8 mg/dL (1.6-2.4); Potassium 3.4 mEq/L (3.5-5.1)
[2023-09-05] MEDS: MAGNESIUM OXIDE 400 MG TAB PO SCH (08:35)
--- NOTE | 2023-09-05 11:17 | P.PN ---
Subjective Date of Service: 09/05/23 Chief Complaint: MARSHA, anasarca, hypertension Patient breathing is better, diuresed well overnight. Review of Systems 10-point ROS is otherwise unremarkable Physical Examination - Vital Signs Temperature: 98.8 F Blood Pressure: 170/93 Pulse: 96 Respirations: 14 Pulse Ox (%): 96 - Physical Exam General: Alert, In no apparent distress HEENT: Atraumatic, PERRLA, EOMI Neck: Supple, JVD not distended Respiratory: Clear to auscultation bilaterally, Normal air movement Cardiovascular: Regular rate/rhythm, Normal S1 S2, Edema (+1 bilateral lower extremities) Gastrointestinal: Normal bowel sounds, No tenderness Musculoskeletal: No tenderness Integumentary: No rashes Neurological: Normal speech, Normal tone, Normal affect Lymphatics: No axilla or inguinal lymphadenopathy - Studies Medications List Reviewed: Yes Assessment And Plan - Current Problems (Diagnosis) (1) Acute heart failure Current Visit: Yes Status: Acute Plan: Echo shows normal systolic function with Grade 3 diastolic dysfunction, moderate LVH and elevated filling pressures, NYHA 3, stage B Lasix 40 mg IV q8 monitor input and output and correct electrolytes. (2) HTN (hypertension) Current Visit: Yes Status: Acute Plan: Coreg 25 mg po BID Losartan 50 mg daily (can go up to 100 if BP still high) Start Hydralazine 25 mg po TID. (3) Diabetes Current Visit: Yes Status: Acute Plan: Patient A1C is high, need tight glycemic control.
--- NOTE | 2023-09-05 11:39 | P.PN ---
Date of Service: 09/05/23 Subjective: LE edema improving Feeling better no acute events overnight BP still running high ROS: 10 point ROS as noted above, otherwise negative Physical exam GEN: Alert, oriented, NAD HEENT: Normal conjunctiva, sclera anicteric CV: Regular rate and rhythm, Improving LE edema, 1-2+ to the level of the thighs Pulm: Nonlabored respirations on room air ABD: Soft, nontender, nondistended MSK: No joint tenderness Integumentary: No rashes Neuro: Normal speech, normal affect Vitals reviewed Assessment: Severe uncontrolled hypertension Anasarca, lower extremity edema suspect underlying CHFunknown EF Diabetes mellitus type [id number]-[id number] with hyperglycemia Acute kidney injury Elevated LFTs Plan: Severe uncontrolled hypertension Anasarca, lower extremity edema suspect underlying CHFunknown EF Reports he is taking atenolol 100mg at home carvedilol 25mg BID, losartan 50mg added 09/03, hydralazine 25 mg tid added 09/04 Cardiology consulted and following Echo shows grade 3 diastolic dysfunction, LVH/dilation Continue lasix 40mg IV q8 Diuresing well Diabetes mellitus type 8lha-vvvmllo-fprndtzeh with hyperglycemia ACHS Accu-Chek, sliding scale insulin A1c 10 Started on long acting insulin 10u at bedtime 6/7 BGL better, will need insulin at DC, has taken before Acute kidney injury Elevated LFTs Suspect this is related to significant volume overload Continue diuresis, repeat chemistries including LFTs in the morning Lfts improving DVT PPX:Heparin subq Code status:Full Discharge Plan: Home Plan to discharge in: 72 Hours Time Spent Managing Pts Care (In Minutes): 35
--- NOTE | 2023-09-05 11:45 | EKG ---
Test Date: 2023-09-03 Test Time: 15:11:20 Consumer Marketing Specialist: CARMEN MEASUREMENT RESULTS: Intervals: Rate: 82 MN: 190 QRSD: 110 QT: 404 QTc: 472 [place]: P: 71 MN: 190 QRS: 48 T: 164 INTERPRETIVE STATEMENTS: Normal sinus rhythm Incomplete left bundle branch block Nonspecific ST and T wave abnormality Prolonged QT Abnormal ECG Compared to ECG 03/28/2022 13:51:29 Left bundle-branch block now present ST (T wave) deviation now present Prolonged QT interval now present Sinus tachycardia no longer present T-wave abnormality no longer present Electronically Signed On 09-05-23 11:44:05 CDT by Xavier Olmedo
[2023-09-05] MEDS: HYDRALAZINE HCL 25 MG TABLET PO SCH (12:32)
[2023-09-05] MEDS: atenoloL 25 MG TAB PO ONE (16:36)
[2023-09-05] MEDS: atenoloL 50 MG TAB ONE (16:59)
--- NOTE | 2023-09-05 21:21 | P.PN ---
Date of Service: 09/05/23 Vital Signs Temp Pulse Resp BP Pulse Ox 97.8 F 90 14 179/105 H 94 09/05/23 16:00 09/05/23 17:53 09/05/23 16:00 09/05/23 17:53 09/05/23 16:00 Medications Dextrose (D10w 250 Ml Bag) 125 ml IV PRN PRN PRN Reason: HYPOGLYCEMIA Furosemide (Furosemide 40 Mg/4 Ml Vial) 40 mg IV Q8HR [facility] Last Admin: 09/05/23 16:59 Dose: 40 mg Glucagon (Glucagon 1 Mg/Vial) 1 mg IM 1X PRN PRN Reason: HYPOGLYCEMIA Heparin Sodium (Porcine) (Heparin 5000 Unit/Ml 1 Ml Vial) 5,000 unit SQ Q12HR [facility] Last Admin: 09/05/23 21:13 Dose: 5,000 unit Hydralazine HCl (Hydralazine Hcl 25 Mg Tablet) 25 mg PO TID [facility] Last Admin: 09/05/23 21:13 Dose: 25 mg Insulin Glargine (Insulin Glargine 100 Unit/Ml) 10 unit SQ BEDTIME [facility] Last Admin: 09/05/23 21:00 Dose: 10 unit Insulin Human Regular (Insulin Regular (Human) 100 Unit/Ml) 0 unit SQ ACHS [facility]; Protocol Last Admin: 09/05/23 21:00 Dose: 6 unit Losartan Potassium (Losartan Potassium 50 Mg Tablet) 50 mg PO BEDTIME [facility] Last Admin: 09/05/23 21:13 Dose: 50 mg Magnesium Oxide (Magnesium Oxide 400 Mg Tab) 400 mg PO DAILY [facility] Last Admin: 09/05/23 08:35 Dose: 400 mg Assessment/ Plan: Nephrology No dyspnea No chest pain No acute events overnight Vitals, medications, blood work and imaging reviewed in the chart NAD. MMM. NCAT. Normal Respiratory Effort. S1S2. ND Abd. No C/C/E. No rash. AAO. Normal speech. Stage I MARSHA likely CRS complicated by NSAIDs CKD -No NSAIDs -Continue diuretics Hypokalemia -Replete as ordered -Continue spironolactone HTN with CKD/ CHF -Continue hydralazine Diastolic CHF, A/C -Continue furosemide and spironolactone DM II with CKD -RISS [id number] EXAM DESCRIPTION: Tenzin Single View6/08/2023 2:17 pm CLINICAL HISTORY: CHEST PAIN COMPARISON: No comparisons TECHNIQUE: Portable AP view of the chest. FINDINGS: The lungs are clear apart from hazy mild opacification near the right costophrenic angle, may relate to superimposition of soft tissues or mild airspace opacification. No pneumothorax or effusion. The cardiomediastinal contours are unremarkable. IMPRESSION: Questionable right basilar airspace opacification as above. No other acute cardiopulmonary process. [id number] EXAM DESCRIPTION: US - Extrem Venous W Compress Dl - 09/03/2023 5:50 pm CLINICAL HISTORY: Bilateral lower extremity edema COMPARISON: None. TECHNIQUE: Real-time sonographic evaluation of the bilateral lower extremity deep venous systems was performed. FINDINGS: Normal compressibility, flow augmentation, phasic flow and spontaneous flow is identified in both the left and right lower extremity deep venous systems. No intraluminal filling defects seen. IMPRESSION: No DVT in either lower extremity.
[2023-09-05] MEDS: ACETAMINOPHEN 500 MG TAB PO PRN (22:01)
[2023-09-06 06:32] LABS: Absolute Eosinophils 0.3 K/uL (0-0.5); Absolute Lymphocytes (CBC) 1.6 K/uL (0.7-4.9); Absolute Monocytes 0.5 K/uL (0.1-1.3); Absolute Neutrophil 3.2 K/uL (1.8-8.0); Basophils % 0.5 % (0-1.3); Hematocrit 43.7 % (39.6-49.0); Hemoglobin 14.3 g/dL (13.6-17.9); Lymphocytes % 27.6 % (15.3-44.8); MCH 29.8 pg (27.0-35.0); MCHC 32.8 g/dL (32.0-36.0); MCV 90.9 fL (80-100); MPV 9.3 fL (7.6-11.3); Monocytes % 9.7 % (3.3-12.3); Neutrophils % 57.2 % (41.7-73.7); Platelets 229 thou/uL (152-406); RBC Red Blood Cell Count 4.81 M/uL (4.33-5.43); Red Cell Distribution Width 12.9 % (12.1-15.2)
[2023-09-06 06:49] LABS: Albumin 2.3 g/dL (3.4-5.0); Albumin/Globulin Ratio 0.6 (1.1-1.8); Anion Gap 8.2 mEq/L (5.0-15.0); Bilirubin Total 0.7 mg/dL (0.2-1.0); Globulin 4.1 g/dL (2.3-3.5); Magnesium 1.9 mg/dL (1.6-2.4); Potassium 3.2 mEq/L (3.5-5.1); Protein, Total 6.4 g/dL (6.4-8.2)
[2023-09-06] MEDS: atenoloL 50 MG TAB PO SCH (07:49)
[2023-09-06] MEDS: POTASSIUM 25 MEQ EFFERV TAB PO ONE (07:49)
[2023-09-06] MEDS: HYDROCODONE/APAP 5/325 MG TAB PO PRN (09:22)
[2023-09-06] MEDS: DOXAZOSIN 2 MG TAB PO ONE (10:20)
[2023-09-06] MEDS: LOSARTAN POTASSIUM 50 MG TABLET PO ONE (10:20)
[2023-09-06 11:15] VITALS: O2SAT 95
--- NOTE | 2023-09-06 15:01 | P.DS ---
Admission Date: 09/03/23 Discharge Date: 09/06/23 Disposition: ROUTINE DISCHARGE Discharge Condition: GOOD Reason for Admission: MARSHA, anasarca, hypertension Consultations: CardiologyDr. Olmedo NephrologyDr. Simms Brief History of Present Illness: 48-year-old male with history of lix-nuziayn-zysckyvfv diabetes, hypertension presents emergency department with chief complaint of lower extremity edema. He reports he has noticed increasing edema in his lower extremities bilaterally over the course of the last 1 week, he also reports a 27 pound weight gain in the last 2 weeks. He reports that he felt as if his medications were contributing to his lower extremity edema so he stopped taking his atenolol and furosemide for the last 4 to 5 days. He denies any known history of CHF, only knows about high blood pressure and diabetes. He was evaluated in the emergency department labs are significant for potassium 3.4 creatinine 2.02 glucose 237 AST 90 ALT 216 BNP 5220 blood pressure markedly elevated 199/120 when I saw him. Patient denies any chest pain, dizziness/lightheadedness or other symptoms. He has edema extending all the way up to his thighs on both legs. Patient has been admitted to the hospital for suspected CHF exacerbation, anasarca, severe hypertension, MARSHA. Hospital Course: Assessment: Severe uncontrolled hypertension Anasarca, lower extremity edema suspect underlying CHFunknown EF Diabetes mellitus type 1qcg-broxfir-dwmukxnjx with hyperglycemia Acute kidney injury Elevated LFTs Patient was admitted to the hospital for generalized edema/anasarca, hypertension with markedly elevated blood pressures. Echo was obtained which showed grade 3 diastolic dysfunction, left ventricular hypertrophy, dilated left ventricle. He was treated with IV Lasix and had significant improvement in his lower extremity edema, he has been on room air throughout hospitalization and is ambulatory without dyspnea, chest pain. In regards to his diuretics he will be prescribed Lasix 40 mg mouth twice daily. He was previously on Lasix 20mg daily but was noncompliant for the last few days days prior to hospitalization. In regards to his hypertension he was previously taking atenolol 100 mg daily, cardiology and nephrology adjusted medications and at discharge he will continue his atenolol 100 mg daily.Doxazosin 2 mg twice daily, losartan 50 mg by mouth twice daily will be added for better blood pressure control and will need to be titrated further outpatient. A1c was also obtained which was 10, had been taking metformin at home which has not been effective at managing his blood sugar, patient was initiated on insulinglargine 10 units at bedtime, prescription be sent to pharmacy for this dose of insulin, further titration at home and with PCP instructions below for home titration . Check you blood sugar in the morning before you eat. Titrate 1-2 times per week such as per table below until average fasting glucose < 130 Fasting glucose > 200 increase by 4 units Fasting glucose 131-200 increase by 2 units Fasting glucose 70-130 No change in dose Fasting glucose < 70 decrease by 2-4 units or by 10% Please be sure to follow-up with your primary care doctor, nephrology, and cardiology in 1 to 2 weeks Vital Signs/Physical Exam: Temp Pulse Resp BP Pulse Ox 97.5 F 76 15 169/104 H 95 09/06/23 12:00 09/06/23 12:00 09/06/23 12:00 09/06/23 12:00 09/06/23 12:00 General: Alert, In no apparent distress, Oriented x3 HEENT: Atraumatic, PERRLA Neck: Supple, JVD not distended Respiratory: Clear to auscultation bilaterally, Normal air movement Cardiovascular: Regular rate/rhythm, Normal S1 S2, Edema Gastrointestinal: Normal bowel sounds, No tenderness Musculoskeletal: No tenderness Integumentary: No rashes Neurological: Normal speech, Normal tone, Normal affect Laboratory Data at Discharge: WBC 5.60 thou/uL (4.3-10.9) 09/06/23 06:15 Hgb 14.3 g/dL (13.6-17.9) 09/06/23 06:15 Hct 43.7 % (39.6-49.0) 09/06/23 06:15 Plt Count 229 thou/uL (152-406) 09/06/23 06:15 PT 12.8 SECONDS (9.5-12.5) H 09/03/23 14:31 INR 1.17 09/03/23 14:31 Sodium 135 mEq/L (136-145) L 09/06/23 06:15 Potassium 3.2 mEq/L (3.5-5.1) L 09/06/23 06:15 BUN 31 mg/dL (7-18) H 09/06/23 06:15 Creatinine 1.69 mg/dL (0.70-1.30) H 09/06/23 06:15 Glucose 247 mg/dL (74-106) H 09/06/23 06:15 Uric Acid 7.9 mg/dL (3.5-7.2) H 09/04/23 04:45 Magnesium 1.9 mg/dL (1.6-2.4) 09/06/23 06:15 Total Bilirubin 0.7 mg/dL (0.2-1.0) 09/06/23 06:15 AST 26 U/L (15-37) 09/06/23 06:15 ALT 90 U/L (16-61) H 09/06/23 06:15 Alkaline Phosphatase 94 U/L (45-117) 09/06/23 06:15 Triglycerides 122 mg/dL (<150) 09/04/23 04:45 Cholesterol 183 mg/dL (<200) 09/04/23 04:45 HDL Cholesterol 43 mg/dL (40-60) 09/04/23 04:45 Cholesterol/HDL Ratio 4.26 09/04/23 04:45 Home Medications: Metformin ER [Glucophage ER*] 1,000 mg PO BID 09/03/23 atenoloL [Atenolol] 100 mg PO DAILY 09/03/23 Doxazosin [Cardura*] 2 mg PO BID #60 tab 09/06/23 Furosemide [Lasix] 40 mg PO BIDL #60 tab 09/06/23 Hydrocodone 5/APAP 325 [[place] 5/325*] 1 tab PO Q6H PRN #10 tab 09/06/23 Insulin Glargine,Hum.rec.anlog [Lantus Solostar] 10 unit SQ BEDTIME #3 ml 09/06/23 Losartan Potassium [Cozaar*] 50 mg PO BID #60 tab 09/06/23 New Medications: Doxazosin [Cardura*] 2 mg PO BID #60 tab Losartan Potassium [Cozaar*] 50 mg PO BID #60 tab Insulin Glargine,Hum.rec.anlog [Lantus Solostar] 10 unit SQ BEDTIME #3 ml Furosemide [Lasix] 40 mg PO BIDL #60 tab Hydrocodone 5/APAP 325 [[place] 5/325*] 1 tab PO Q6H PRN #10 tab PRN Reason: Pain Scale 5-7 (Moderate) Physician Discharge Instructions: Patient was admitted to the hospital for generalized edema/anasarca, hypertension with markedly elevated blood pressures. Echo was obtained which showed grade 3 diastolic dysfunction, left ventricular hypertrophy, dilated left ventricle. He was treated with IV Lasix and had significant improvement in his lower extremity edema, he has been on room air throughout hospitalization and is ambulatory without dyspnea, chest pain. In regards to his diuretics he will be prescribed Lasix 40 mg mouth twice daily. He was previously on Lasix 20mg daily but was noncompliant for the last few days days prior to hospitalization. In regards to his hypertension he was previously taking atenolol 100 mg daily, cardiology and nephrology adjusted medications and at discharge he will continue his atenolol 100 mg daily.Doxazosin 2 mg twice daily, losartan 50 mg by mouth twice daily will be added for better blood pressure control and will need to be titrated further outpatient. A1c was also obtained which was 10, had been taking metformin at home which has not been effective at managing his blood sugar, patient was initiated on insulinglargine 10 units at bedtime, prescription be sent to pharmacy for this dose of insulin, further titration at home and with PCP instructions below for home titration . Check you blood sugar in the morning before you eat. Titrate 1-2 times per week such as per table below until average fasting glucose < 130 Fasting glucose > 200 increase by 4 units Fasting glucose 131-200 increase by 2 units Fasting glucose 70-130 No change in dose Fasting glucose < 70 decrease by 2-4 units or by 10% Please be sure to follow-up with your primary care doctor, nephrology, and cardiology in 1 to 2 weeks Diet: AHA Activity: Ad maria Followup: Juan David Simms DO [ACTIVE - CAN ADMIT] - 1-2 Weeks Xavier Olmedo MD [ACTIVE - CAN ADMIT] - 1-2 Weeks NONE,NONE [Primary Care Provider] - 1 Week Time spent managing pt's care (in minutes): 35
--- NOTE | 2023-09-06 15:05 | P.PN ---
Subjective Date of Service: 09/06/23 Chief Complaint: MARSHA, anasarca, hypertension Subjective: No new changes (feels better, diuresing well), No C/O voiced, Tolerating diet, Ambulating, Improving Patient breathing is better, diuresed well overnight. Review of Systems 10-point ROS is otherwise unremarkable Physical Examination - Vital Signs Temperature: 97.5 F Blood Pressure: 169/104 Pulse: 76 Respirations: 15 Pulse Ox (%): 95 - Physical Exam General: Alert, In no apparent distress HEENT: Atraumatic, PERRLA, EOMI Neck: Supple, JVD not distended Respiratory: Clear to auscultation bilaterally, Normal air movement Cardiovascular: Regular rate/rhythm, Normal S1 S2, Edema Gastrointestinal: Normal bowel sounds, No tenderness Musculoskeletal: No tenderness Integumentary: No rashes Neurological: Normal speech, Normal tone, Normal affect Lymphatics: No axilla or inguinal lymphadenopathy - Studies Medications List Reviewed: Yes Assessment And Plan - Current Problems (Diagnosis) (1) Acute heart failure Current Visit: Yes Status: Acute Plan: Echo shows normal systolic function with Grade 3 diastolic dysfunction, moderate LVH and elevated filling pressures, NYHA 3, stage B Lasix 40 mg PO BID on discharge monitor input and output and correct electrolytes. (2) HTN (hypertension) Current Visit: Yes Status: Acute Plan: Coreg was switched to Atnelol as patient mention that he had better response to it in the past. Losartan 50 mg BID Hydralazine 25 mg po TID. Doxazosin 2 mg BID will need renal artery duplex as outpatient. (3) Diabetes Current Visit: Yes Status: Acute Plan: Patient A1C is high, need tight glycemic control.
[2023-09-06 15:53] VITALS: BP 159/93; TEMP 97.2
--- NOTE | 2023-09-06 16:00 | P.PN ---
Date of Service: 09/06/23 Vital Signs Temp Pulse Resp BP Pulse Ox 97.2 F 79 16 159/93 H 97 09/06/23 15:47 09/06/23 15:47 09/06/23 15:47 09/06/23 15:47 09/06/23 15:47 Medications Acetaminophen (Acetaminophen 500 Mg Tab) 500 mg PO Q6H PRN PRN Reason: Pain scale 5-7 (Moderate) Last Admin: 09/05/23 22:01 Dose: 500 mg Hydrocodone Bitart/Acetaminophen (Hydrocodone/Apap 5/325 Mg Tab) 1 tab PO Q6H PRN PRN Reason: Pain scale 5-7 (Moderate) Last Admin: 09/06/23 09:22 Dose: 1 tab Atenolol (Atenolol 50 Mg Tab) 100 mg PO [id number] [facility] Last Admin: 09/06/23 07:49 Dose: 100 mg Dextrose (D10w 250 Ml Bag) 125 ml IV PRN PRN PRN Reason: HYPOGLYCEMIA Doxazosin Mesylate (Doxazosin 2 Mg Tab) 2 mg PO BID [facility] Furosemide (Furosemide 40 Mg/4 Ml Vial) 40 mg IV Q8HR [facility] Last Admin: 09/06/23 09:21 Dose: 40 mg Glucagon (Glucagon 1 Mg/Vial) 1 mg IM 1X PRN PRN Reason: HYPOGLYCEMIA Heparin Sodium (Porcine) (Heparin 5000 Unit/Ml 1 Ml Vial) 5,000 unit SQ Q12HR [facility] Last Admin: 09/06/23 09:21 Dose: 5,000 unit Hydralazine HCl (Hydralazine Hcl 25 Mg Tablet) 25 mg PO TID [facility] Last Admin: 09/06/23 14:11 Dose: 25 mg Insulin Glargine (Insulin Glargine 100 Unit/Ml) 10 unit SQ BEDTIME [facility] Last Admin: 09/05/23 21:00 Dose: 10 unit Insulin Human Regular (Insulin Regular (Human) 100 Unit/Ml) 0 unit SQ ACHS [facility]; Protocol Last Admin: 09/06/23 12:39 Dose: 4 unit Losartan Potassium (Losartan Potassium 50 Mg Tablet) 50 mg PO BID [facility] Magnesium Oxide (Magnesium Oxide 400 Mg Tab) 400 mg PO DAILY [facility] Last Admin: 09/06/23 09:00 Dose: 400 mg Assessment/ Plan: Nephrology No dyspnea No chest pain +BM No acute events overnight Vitals, medications, blood work and imaging reviewed in the chart NAD. MMM. NCAT. Normal Respiratory Effort. S1S2. ND Abd. No C/C/E. No rash. AAO. Normal speech. Stage I MARSHA likely CRS complicated by NSAIDs CKD -No NSAIDs -Continue diuretics Hypokalemia -Replete as ordered -Increase Losartan BID HTN with CKD/ CHF -Continue hydralazine -Continue Atenolol -Continue Doxazosin Diastolic CHF, A/C -Continue furosemide DM II with CKD & Hyperglycemia -RISS Hypoalbuminemia [id number] EXAM DESCRIPTION: RADChest Single View09/03/2023 2:17 pm CLINICAL HISTORY: CHEST PAIN COMPARISON: No comparisons TECHNIQUE: Portable AP view of the chest. FINDINGS: The lungs are clear apart from hazy mild opacification near the right costophrenic angle, may relate to superimposition of soft tissues or mild airspace opacification. No pneumothorax or effusion. The cardiomediastinal contours are unremarkable. IMPRESSION: Questionable right basilar airspace opacification as above. No other acute cardiopulmonary process. [id number] EXAM DESCRIPTION: US - Extrem Venous W Compress Dl - 09/03/2023 5:50 pm CLINICAL HISTORY: Bilateral lower extremity edema COMPARISON: None. TECHNIQUE: Real-time sonographic evaluation of the bilateral lower extremity deep venous systems was performed. FINDINGS: Normal compressibility, flow augmentation, phasic flow and spontaneous flow is identified in both the left and right lower extremity deep venous systems. No intraluminal filling defects seen. IMPRESSION: No DVT in either lower extremity. Hospitalist note reviewed Case discussed with Dr. Raza
[2023-09-06] MEDS ORDERED: LOSARTAN POTASSIUM 50 MG TABLET PO SCH (21:00)
[2023-09-06] MEDS ORDERED: DOXAZOSIN 2 MG TAB PO SCH (21:00)
--- NOTE | 2023-09-07 06:52 | ECHO ---
HEIGHT: 6 ft 4 in WEIGHT: 260 lb 0 oz DATE OF STUDY: 09/04/[address]: Arun Fernandez NP 2-DIMENSIONAL: YES M.MODE: YES DOPPLER: YES COLOR FLOW: YES TDS: PORTABLE: YES DEFINITY: BUBBLE STUDY: DIAGNOSIS: ANASARCA, HYPERTENSION CARDIAC HISTORY: CATHERIZATION: NO SURGERY: NO PROSTHETIC VALVE: NO PACEMAKER: NO MEASUREMENTS (cm) DIASTOLIC (NORMALS) SYSTOLIC (NORMALS) IVSd 1.4 (0.6-1.2) LA Diam 4.7 (1.9-4.0) LVEF 50-55% LVIDd 5.5 (3.5-5.7) LVIDs 4.1 (2.0-3.5) %FS 26% LVPWd 1.5 (0.6-1.2) Ao Diam 3.2 (2.0-3.7) 2 DIMENSIONAL ASSESSMENT: RIGHT ATRIUM: NORMAL LEFT ATRIUM: NORMAL RIGHT VENTRICLE: NORMAL LEFT VENTRICLE: MODERATE DILATED, MODERATE LEFT VENTRICULAR HYPERTROPHY TRICUSPID VALVE: TRACE TRICUSPID REGURGITATION MITRAL VALVE: NORMAL PULMONIC VALVE: TRACE PULMONIC INSUFFICIENCY AORTIC VALVE: NORMAL PERICARDIAL EFFUSION: NONE AORTIC ROOT: NORMAL LEFT VENTRICULAR WALL MOTION: NORMAL DOPPLER/COLOR FLOW: GRADE III DIASTOLIC DYSFUNCTION COMMENTS: 1. NORMAL LEFT VENTRICULAR SYSTOLIC FUNCTION, EJECTION FRACTION 50-55%, NORMAL WALL MOTION 2. GRADE III DIASTOLIC DYSFUNCTION 3. MODERATE LEFT VENTRICULAR HYPERTROPHY, MODERATE DILATED LEFT VENTRICLE 4. ELEVATED FILLING PRESSURE (RIGHT ATRIUM 15-20 mmHg) TECHNOLOGIST: NEDRA JUNIOR
== END 2023-09-06 15:40 | disposition home or self-care (01) | DRG 682 ==
LOC: ER 13:09 → ERHOLD 17:20 → 4TH 09-04 11:42
PROVIDERS: ADMIT Hospitalist; ATTEND Hospitalist
DX: N17.9 Acute kidney failure, unspecified (principal); I50.33 Acute on chronic diastolic (congestive) heart failure; I13.0 Hypertensive heart and chronic kidney disease with heart failure and stage 1 through stage 4 chronic kidney disease, or unspecified chronic kidney disease; N18.9 Chronic kidney disease, unspecified; E11.22 Type 2 diabetes mellitus with diabetic chronic kidney disease; E11.65 Type 2 diabetes mellitus with hyperglycemia; E87.6 Hypokalemia; I16.0 Hypertensive urgency; E88.09 Other disorders of plasma-protein metabolism, not elsewhere classified; R79.89 Other specified abnormal findings of blood chemistry; Z79.84 Long term (current) use of oral hypoglycemic drugs; Z79.899 Other long term (current) drug therapy
CPT/HCPCS: 36415; 71045; 80048; 80053; 80061; 80076; 80307; 81001; 82550; 82570; 82947; 83036; 83735; 83880; 84156; 84439; 84443; 84484; 84550; 85025; 85610; 93005; 93306; 93970; 96374; 96375; 99285; J0360; J1644; J1940

== ENCOUNTER 2024-02-08 12:09 | Inpatient (IN) | payer OTHER ==
--- OUTSIDE RECORDS SUMMARY | 2024-02-08 12:11 | XMS REPORT | Continuity of Care Document ---
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 Body mass index 30+ - obesity Body Mass Index 30+ - Obesity Problem Active 12-05 00:00: 00 [facility] Hypertensi ve disorder Hypertensi ve Disorder Problem Active 12-05 00:00: 00 [facility] Erectile dysfunctio n Erectile Dysfunctio n Problem Active 12-05 00:00: 00 [facility] Social History Smoking Status Start Date Stop Date Source Never Smoker [facility] Medications Ordered Medication Name Filled Medication Name [...] tablet twice a day by oral route. [facility] Coreg 12.5 mg tablet Take 1 tablet twice a day by oral route. Coreg 12.5 mg tablet Take 1 tablet twice a day by oral route. No 1 BID Coreg 12.5 mg tablet Take 1 tablet twice a day by oral route. [facility] Coreg 6.25 mg tablet Take 1 tablet twice a day by oral route. Coreg 6.25 mg tablet Take 1 tablet twice a day by oral route. No 1 BID Coreg 6.25 mg tablet Take 1 tablet twice a day by oral route. [facility] Vital Signs Vital Name Observation Time Observation Value Comments S ource BP Diastolic 2021-12-12 00:00:00 77 mm[Hg] [facility] Height 2021-12-12 00:00:00 76 [in_i] [facility] BMI (Body Mass Index) 2021-12-12 00:00:00 29.8 kg/m2 [facility] BP Systolic 2021-12-12 00:00:00 150 mm[Hg] [facility] Body Weight 2021-12-12 00:00:00 3920 [oz_av] [facility] BP Diastolic 2021-12-05 00:00:00 98 mm[Hg] [facility] Height 2021-12-05 00:00:00 76 [in_i] [facility] BMI (Body Mass Index) 2021-12-05 00:00:00 30.1 kg/m2 [facility] BP Systolic 2021-12-05 00:00:00 162 mm[Hg] [facility] Body Weight 2021-12-05 00:00:00 3952 [oz_av] [facility] Plan of Care Planned Activity Planned Date Details Comments Source Diagnostic Test Pending 2021-12-05 00:00:00 CMP, serum or plasma [code = CMP, serum or plasma] [facility] Diagnostic Test Pending 2021-12-05 00:00:00 HbA1c (hemoglobin A1c), blood [code = HbA1c (hemoglobin A1c), blood] [facility] Diagnostic Test Pending 2021-12-05 00:00:00 TSH, serum or plasma [code = TSH, serum or plasma] [facility] Diagnostic Test Pending 2021-12-05 00:00:00 CBC w/ auto diff [code = CBC w/ auto diff] [facility] Diagnostic Test Pending 2021-12-05 00:00:00 PSA, total, serum or plasma [code = PSA, total, serum or plasma] [facility] Diagnostic Test Pending 2021-12-05 00:00:00 lipid panel, serum [code = lipid panel, serum] [facility] Encounters Start Date/Time End Date/Time Encounter Type Admission Type Attending [facility] Care Department Encounter ID Source 2023-03-12 [...] José 2021-12-17 00:00:00 2021-12-17 00:00:00 Outpatient ERICKSON_R [facility] [id number] [facility] 2021-12-12 00:00:00 2021-12-12 00:00:00 Outpatient ERICKSON_R [facility] [id number] [facility] 2021-12-12 00:00:00 2021-12-12 00:00:00 Jose L Philippe, DO: [address] [place] [place] [address] , Ph. [facility], DR. PHILIPPE [phone] [facility] 2021-12-12 00:00:00 2021-12-12 00:00:00 Outpatient Jose L Philippe [facility] [id number] 2021-12-05 00:00:00 2021-12-05 00:00:00 Outpatient CHARLENE [facility] [id number] [facility] 2021-12-05 00:00:00 2021-12-05 00:00:00 Jose L Philippe, DO: [address] [place] [address] , Ph. [phone] [facility], DR. PHILIPPE [id number] [facility] 2021-12-05 00:00:00 2021-12-05 00:00:00 Outpatient Jose L Philippe [facility] [id number] Results Test Description Test Time Test Comments Results Result Co mments Source COMPREHENSIVE METABOLIC [id number] 02:04:45* Test Item Value Reference Range Interpretation Comme nts GLUCOSE (test code = 2217) 210 MG/DL 70-99 H BUN (test code = 2208) 21 MG/DL 6-20 H CREATININE (test code = 2214) 1.62 MG/DL 0.80-1.40 H eGFR (2020 CKD-EPI) (test code = 21298) 53 ML/MIN/1.73 >60 L The NKF-ASN Taskforc e recommends use of Cystatin C to confirm eGFR inadults at risk for CKD. [facility] offers eGFR with Cystatin C-Creatinineusing the 2020 CKD-EPI eGFR_creat-cystat equation (order code 3057) toincrease the accuracy of estimated GFR. For more information, contactLogia Groupur accounting generalist or see announcement [email or web address] CALC BUN/CREAT (test code = 2234) 13 [...] TESTING PERFORMED AT [facility] [address] [place] [address] HEAD FILTER PRESS TENDER: YOUNG CARBAJAL M.D. CLIA NUMBER [id number] [facility] [place]. [id number] HEMOGLOBIN [id number] 05:30:27* Test Item Value Reference Range Interpretation Comme nts HEMOGLOBIN A1c (test code = 71847) 8.2 % 4.2-5.6 H [employer] GUIDELINES FOR HGB A1C: [...]
[2024-02-08] MEDS: NA CHLORIDE 0.9% 1,000 ML IV SCH (13:00)
--- NOTE | 2024-02-08 15:01 | P.HP ---
Certification for Inpatient Patient admitted to: Inpatient With expected LOS: >2 Midnights Patient will require the following post-hospital care: None Practitioner: I am a practitioner with admitting privileges, knowledge of patient current condition, hospital course, and medical plan of care. Services: Services provided to patient in accordance with Admission requirements found in Title 42 Section 412.3 of the Code of Federal Regulations Patient History Date of Service: 02/08/24 Reason for admission: Seizure/TIA History of Present Illness: Patient is a 48-year-old gentleman who presents to the ER respiratory ED with hyperglycemia and hypertension. Patient was also having a headache and vision difficulty. According to the nursing staff patient was staring off into space and he was not really responding appropriately. However, his mentation would fluctuate quite substantially. Patient denies any new complaints at this time and he states has been going on for about the last couple of weeks., And he apparently partial drifting whenever he walks. Patient was also dysmetric. Decision was made to transfer patient to our facility for neurology consultation and further neurowork-up including EEG and MRI. Allergies No Known Allergies Allergy (Unverified 09/01/17 18:45) Home Medications: Metformin ER [Glucophage ER*] 1,000 mg PO BID 09/03/23 atenoloL [Atenolol] 100 mg PO DAILY 09/03/23 Doxazosin [Cardura*] 2 mg PO BID #60 tab 09/06/23 Furosemide [Lasix] 40 mg PO BIDL #60 tab 09/06/23 Hydrocodone 5/APAP 325 [[place] 5/325*] 1 tab PO Q6H PRN #10 tab 09/06/23 Insulin Glargine,Hum.rec.anlog [Lantus Solostar] 10 unit SQ BEDTIME #3 ml 09/06/23 Losartan Potassium [Cozaar*] 50 mg PO BID #60 tab 09/06/23 Aspirin [Aspirin EC] 81 mg PO DAILY 02/08/24 Atorvastatin Calcium 20 mg PO BEDTIME 02/08/24 - Past Medical/Surgical History Has patient received pneumonia vaccine in the past: No Diabetic: Yes -: Hypertension -: [id number] diabetes -: None Psychosocial/ Personal History: Lives at home with his son, works in maintenance at the [employer] - Family History Father Medical History: Hypertension, Diabetes Mother Medical History: Heart disease, Hypertension, Diabetes - Social History Smoking Status: Never smoker Alcohol use: Yes CD- Drugs: No Caffeine use: No Place of Residence: Home Review of Systems 10-point ROS is otherwise unremarkable Physical Examination - Vital Signs Temperature: 98 F Blood Pressure: 180/90 Pulse: 80 Respirations: 18 Pulse Ox (%): 95 - Physical Exam General: Alert, In no apparent distress, Oriented x3 HEENT: Atraumatic, PERRLA, Mucous membr. moist/pink, EOMI, Sclerae nonicteric Neck: Supple, 2+ carotid pulse no bruit, No LAD, Without JVD or thyroid abnormality Respiratory: Clear to auscultation bilaterally, Normal air movement Cardiovascular: Regular rate/rhythm, Normal S1 S2, No murmurs Gastrointestinal: Normal bowel sounds, Soft and benign, Non-distended, No tenderness Musculoskeletal: No clubbing, No swelling, No tenderness Integumentary: No rashes Neurological: Normal speech, Normal strength at 5/5 x4 extr, Normal tone, Cranial nerves 3-12 intact, Normal affect Lymphatics: No axilla or inguinal lymphadenopathy Assessment & Plan - Problems (Diagnosis) (1) Absence seizure Current Visit: Yes Status: Acute (2) Ataxia Current Visit: Yes Status: Acute (3) Blurred vision Current Visit: Yes Status: Acute (4) Malignant hypertension Current Visit: Yes Status: Acute (5) TIA (transient ischemic attack) Current Visit: Yes Status: Acute (6) Diabetes Current Visit: No Status: Acute - Plan 1. MRI of the brain revealed no abnormalities 2. Continue with antiplatelet and statin therapy 3. Lipid profile completed and reviewed 4. Physical therapy and speech therapy consultation appreciated 5. DVT prophylaxis 6. Neurochecks every 4 hours 7. Reassess stroke scale 8. EEG pending 9. Antiepileptic can be DC'd at this time 10. GI and DVT prophylaxis Anticipate discharge home in AM Discharge Plan: Home - Advance Directives Does patient have a Living Will: No Does patient have a Durable POA for Healthcare: No - Code Status/Comfort Care Code Status Assessed: Yes Code Status: Full Code Critical Care: No Time Spent Managing PTS Care (In Minutes): 45
[2024-02-08] MEDS ORDERED: D50W 25 GM/50 ML SYRINGE IV PRN (15:54)
[2024-02-08] MEDS ORDERED: GLUCAGON 1 MG/VIAL IM PRN (15:54)
[2024-02-08] MEDS: METFORMIN ER 500 MG TAB PO SCH (16:08)
[2024-02-08] MEDS: FUROSEMIDE 40 MG TABLET PO SCH (16:08)
[2024-02-08] MEDS: HYDROCODONE/APAP 5/325 MG TAB PO PRN (16:08)
[2024-02-08] MEDS: HYDRALAZINE HCL 20 MG/ML VIAL IV PRN (16:09)
[2024-02-08] MEDS: INSULIN REGULAR (HUMAN) 100 UNIT/ML SQ SCH (16:13)
[2024-02-08] MEDS: METOPROLOL TAR 25 MG TAB PO ONE (16:36)
[2024-02-08] MEDS: INSULIN 70/30 100 UNITS/ML SQ SCH (16:37)
[2024-02-08] MEDS: METOPROLOL TAR 50 MG TAB PO SCH (17:54)
--- NOTE | 2024-02-08 17:56 | RAD REPORT ---
EXAMINATION: MRI BRAIN WITHOUT CONTRAST CLINICAL INDICATION: Male, 48 years old.[facility] N Seizure-like activity rule out CVA TECHNIQUE: Multiplanar multisequence MR images of the brain were obtained without intravenous contras t. Unless otherwise specified, incidental findings do not require dedicated imaging follow-up. COMPARISON: No prior exam. FINDINGS: INTRACRANIAL: Midline structures are unremarkable. Diffusion-weighted images show no acute or early subacute infarction. Mild periventricular and deep white matter punctate/FLAIR hyperintensities, nonspecific, but suggestive of mild chronic small vessel ischemic changes.. The ventricles are normal in size and morphology. 2 punctate susceptibility signal abnormalities in the right basal ganglia region, suggesting remote microhemorrhages. There is no mass effect or midline shift. No abnormal ext raaxial fluid collection. VASCULATURE: Normal signal voids in the larger intracranial arteries and dural venous sinuses. SINUSES: The paranasal sinuses and mastoid air cells are predominantly clear. BONE: The marrow signal pattern is within normal limits. IMPRESSION: No significant intracranial abnormalities. Chronic changes as above.
[2024-02-08] MEDS: ATORVASTATIN 20 MG TAB PO SCH (20:53)
[2024-02-08] MEDS: DOXAZOSIN 2 MG TAB PO SCH (20:57)
[2024-02-08] MEDS: LOSARTAN POTASSIUM 50 MG TABLET PO SCH (20:58)
[2024-02-08] MEDS: INSULIN GLARGINE 100 UNIT/ML SQ SCH (20:58)
[2024-02-08] MEDS ORDERED: HOME MED 1 EA UNK (Insulin Glargine,Hum.Rec.Anlog [Lantus Solostar] 100 UNIT/ML Insuln.Pen SQ SCH (21:00)
--- NOTE | 2024-02-09 02:14 | CON ---
Consultation called on the patient due to possible seizure. History Of Present Illness: Mr. Luis is a 48-year-old right-handed patient with un controlled diabetes mellitus and hypertension along with dyslipidemia, who became disoriented and had difficulty with vision and headache when he was seen at an outside hospital. He was evaluated and f ound to have hyperglycemia to around 600, severe hypertension along with the headache, visual disturb ance, and confusion. He was felt to require further evaluation and was transferred to [facility] for further care and neurologic evaluation along with EEG and MRI. Since his hospitalization, the patient had improvement in terms of his ability to communicate. His headache has improved somewh at and his visual disturbance has improved as well. His brain MRI done with and without contrast shannan ws no acute ischemic hemorrhagic findings. His EEG is done and is pending review. His laboratory [facility] showed a blood glucose of 148. Other blood work is pending. Allergies: NO KNOWN DRUG ALLERGIES. Family History: He denies family history of seizures. The patient's daughter is at the bedside and his ex- is on the phone. She and his daughter reported no history of seizures. No head trauma. Social History: Denies using illegal drugs or alcohol. Current Medications: Truchas 5/325 every 6 hours as needed, aspirin 81 mg daily, Lipitor 20 mg at bedt rolo, Cardura 2 mg twice daily, Lasix 40 mg twice daily, Apresoline 10 mg IV every 6 hours as needed, Semglee insulin 10 units at bedtime, Novolin 70/30 30 units twice daily, Cozaar 50 mg twice daily, me tformin 1000 mg twice daily, Lopressor 50 mg twice daily, and he is receiving normal saline. Review of Systems: As noted. No fevers or chills. No myalgias, arthralgias, rash, headaches, or weight change. Physical Examination: Vital Signs: Blood pressure 141/67, pulse 68, respiratory rate 16, temperature , oxygen sa turation 96%. General: Mr. Luis is resting in bed. His EEG is being done. HEENT: He is normocephalic, atraumatic. Sclerae are anicteric. Oropharynx pink and moist. Neck: Supple. Chest: Clear. Heart: Regular. Neurologic: He is slow to respond, but appropriate to questions. Cranial nerves show no focal defic its. Motor examination, upper and lower extremities show no focal weakness. Sensory exam, stocking- glove loss, light touch, temperature. Coordination intact. He will be ambulated once the EEG is don e and he is able to be up and out of bed. Assessment: Mr. Luis is a 48-year-old patient with improved marked hyperglycemia and hypertension p otentially producing neurological deficits that may now be resolving. Brain MRI is unremarkable. Ne urologic exam shows no focal deficits. His EEG is pending review. Plan: We will review the EEG. Continue with aggressive management of hypertension, diabetes mellitu s, and stroke risk medication with aspirin, folic acid, and Plavix 75 mg daily and also high-dose sta tin. We will hold off on antiepileptic medications at this point until EEG is reviewed. I will foll ow the patient while in the hospital and if discharge, may follow up in Dr. Francois's clinic within a month. STEFANIE/DENNIS Voice ID: [id number] Report ID: [id number]
[2024-02-09 06:07] LABS: Absolute Basophils 0.1 K/uL (0-0.5); Absolute Eosinophils 0.2 K/uL (0-0.5); Absolute Lymphocytes (CBC) 2.6 K/uL (0.7-4.9); Absolute Monocytes 0.6 K/uL (0.1-1.3); Absolute Neutrophil 4.5 K/uL (1.8-8.0); Basophils % 1.5 % (0-1.3); Hematocrit 43.5 % (39.6-49.0); Hemoglobin 14.9 g/dL (13.6-17.9); Lymphocytes % 31.9 % (15.3-44.8); MCH 31.5 pg (27.0-35.0); MCHC 34.1 g/dL (32.0-36.0); MCV 92.3 fL (80-100); MPV 9.5 fL (7.6-11.3); Neutrophils % 55.6 % (41.7-73.7); Nucleated Red Blood Cells % 0.1 % (0-0); Platelets 203 thou/uL (152-406); RBC Red Blood Cell Count 4.72 M/uL (4.33-5.43); Red Cell Distribution Width 12.1 % (12.1-15.2)
[2024-02-09 06:18] LABS: Anion Gap 8.2 mEq/L (5.0-15.0); Magnesium 2.2 mg/dL (1.6-2.4); Phosphorus 3.3 mg/dL (2.5-4.9); Potassium 3.2 mEq/L (3.5-5.1)
[2024-02-09] MEDS ORDERED: atenoloL 50 MG TAB PO SCH (09:00)
[2024-02-09] MEDS: POTASSIUM CL SA 10 MEQ TAB PO ONE (09:14)
[2024-02-09] MEDS: ASPIRIN EC 81 MG TAB PO SCH (09:15)
--- NOTE | 2024-02-09 17:19 | P.PN ---
Subjective Date of Service: 02/09/24 Subjective: No new changes, No C/O voiced, Improving Review of Systems 10-point ROS is otherwise unremarkable Physical Examination - Vital Signs Temperature: 98 F Blood Pressure: 180/90 Pulse: 80 Respirations: 18 Pulse Ox (%): 95 - Physical Exam General: Alert, In no apparent distress HEENT: Atraumatic, PERRLA, EOMI Neck: Supple, JVD not distended Respiratory: Clear to auscultation bilaterally, Normal air movement Cardiovascular: Regular rate/rhythm, Normal S1 S2 Gastrointestinal: Normal bowel sounds, No tenderness Musculoskeletal: No tenderness Integumentary: No rashes Neurological: Normal speech, Normal tone, Normal affect Lymphatics: No axilla or inguinal lymphadenopathy - Studies Laboratory Data (last 24 hrs) 02/09/24 02/09/24 05:44 05:44 WBC 8.10 Hgb 14.9 Hct 43.5 Plt Count 203 Sodium 137 Potassium 3.2 L BUN 44 H Creatinine 2.61 H Glucose 249 H Phosphorus 3.3 Magnesium 2.2 Triglycerides 216 H Cholesterol 194 HDL Cholesterol 39 L Cholesterol/HDL Ratio 4.97 Medications List Reviewed: Yes Assessment & Plan - Problems (Diagnosis) (1) Absence seizure Current Visit: Yes Status: Acute (2) Ataxia Current Visit: Yes Status: Acute (3) Blurred vision Current Visit: Yes Status: Acute (4) Malignant hypertension Current Visit: Yes Status: Acute (5) TIA (transient ischemic attack) Current Visit: Yes Status: Acute (6) Diabetes Current Visit: No Status: Acute - Plan 1. MRI of the brain revealed no abnormalities 2. Continue with antiplatelet and statin therapy 3. Lipid profile completed and reviewed 4. Physical therapy and speech therapy consultation appreciated 5. DVT prophylaxis 6. Neurochecks every 4 hours 7. Reassess stroke scale 8. EEG pending 9. Antiepileptic can be DC'd at this time 10. GI and DVT prophylaxis Anticipate discharge home in AM Discharge Plan: Home Plan to discharge in: Greater than 2 days - Advance Directives Does patient have a Living Will: No Does patient have a Durable POA for Healthcare: No - Code Status/Comfort Care Code Status: Full Code Critical Care: No Time Spent Managing PTS Care (In Minutes): 35
[2024-02-09 19:57] VITALS: BMI 28.1
[2024-02-09 23:21] VITALS: O2SAT 96
[2024-02-10 04:45] LABS: Absolute Basophils 0.1 K/uL (0-0.5); Absolute Eosinophils 0.3 K/uL (0-0.5); Absolute Lymphocytes (CBC) 2.7 K/uL (0.7-4.9); Absolute Monocytes 0.6 K/uL (0.1-1.3); Absolute Neutrophil 4.1 K/uL (1.8-8.0); Basophils % 0.9 % (0-1.3); Eosinophils % 3.3 % (0-4.4); Hematocrit 40.2 % (39.6-49.0); Hemoglobin 13.4 g/dL (13.6-17.9); Lymphocytes % 35.4 % (15.3-44.8); MCH 31.1 pg (27.0-35.0); MCHC 33.4 g/dL (32.0-36.0); MCV 93.2 fL (80-100); Monocytes % 7.9 % (3.3-12.3); Neutrophils % 52.5 % (41.7-73.7); Nucleated Red Blood Cells % 0.2 % (0-0); Platelets 179 thou/uL (152-406); RBC Red Blood Cell Count 4.32 M/uL (4.33-5.43); Red Cell Distribution Width 12.1 % (12.1-15.2)
[2024-02-10 05:05] LABS: BUN Blood Urea Nitrogen 46 mg/dL (7-18); Bicarbonate 31 mEq/L (21-32); Glomerular Filtration Rate 29 ml/min (=/>90); Glucose Level 139 mg/dL (74-106); Magnesium 1.8 mg/dL (1.6-2.4); Sodium Level 135 mEq/L (136-145)
--- NOTE | 2024-02-10 07:46 | P.DS ---
Admission Date: 02/08/24 Discharge Date: 02/10/24 Disposition: ROUTINE DISCHARGE Discharge Condition: FAIR Reason for Admission: Seizure/TIA Brief History of Present Illness: Patient is a 48-year-old gentleman who presents to the ER respiratory ED with hyperglycemia and hypertension. Patient was also having a headache and vision difficulty. According to the nursing staff patient was staring off into space and he was not really responding appropriately. However, his mentation would fluctuate quite substantially. Patient denies any new complaints at this time and he states has been going on for about the last couple of weeks., And he apparently partial drifting whenever he walks. Patient was also dysmetric. Decision was made to transfer patient to our facility for neurology consultation and further neurowork-up including EEG and MRI. - Physical Exam General: Alert, In no apparent distress, Oriented x3 HEENT: Atraumatic, PERRLA, Mucous membr. moist/pink, EOMI, Sclerae nonicteric Neck: Supple, 2+ carotid pulse no bruit, No LAD, Without JVD or thyroid abnormality Respiratory: Clear to auscultation bilaterally, Normal air movement Cardiovascular: Regular rate/rhythm, Normal S1 S2, No murmurs Gastrointestinal: Normal bowel sounds, Soft and benign, Non-distended, No tenderness Musculoskeletal: No clubbing, No swelling, No tenderness Integumentary: No rashes Neurological: Normal speech, Normal strength at 5/5 x4 extr, Normal tone, Cranial nerves 3-12 intact, Normal affect Lymphatics: No axilla or inguinal lymphadenopathy Hospital Course: Patient is a 48-year-old gentleman who presents to the ER respiratory ED with hyperglycemia and hypertension. Patient was also having a headache and vision difficulty. According to the nursing staff patient was staring off into space and he was not really responding appropriately. However, his mentation would fluctuate quite substantially. Patient denies any new complaints at this time and he states has been going on for about the last couple of weeks., And he apparently partial drifting whenever he walks. Patient was also dysmetric. Decision was made to transfer patient to our facility for neurology consultation and further neurowork-up including EEG and MRI. He was evaluated by neurology, he was evaluated by physical therapy, and work with physical therapy prior to discharge Neurology Discharge medications aspirin, folic acid, and Plavix 75 mg daily and also high- dose statin. We will hold off on antiepileptic medications at this point until EEG is reviewed per neurology follow up in Dr. Francois's clinic within a month. Discharge home with outpatient physical therapy for ataxia, fall precaution Assessment Absence seizure Ataxia Blurred vision Malignant hypertension TIA (transient ischemic attack) Diabetes with hyperglycemia MRI of the brain revealed no abnormalities EEG pending Antiepileptic can be DC'd per neurology Continue home medicines as previously prescribed GOAL: Clear understanding of disease process INSTRUCTIONS: Physician Discharge Instructions: -Follow-up with Dr. Francois in 1 month -Follow-up with PCP in 1 to 2 weeks -Please call Dr. Germain at [phone] if any questions regarding hospital stay -Please call nursing station at [phone] if any nursing or medication questions -Return to the emergency room if symptoms worsen Diet: ADA, low sodium Activity: Fall precautions Vital Signs/Physical Exam: Temp Pulse Resp BP Pulse Ox 97.5 F 100 H 18 154/90 H 96 02/10/24 04:00 02/10/24 06:38 02/10/24 04:00 02/10/24 06:38 02/10/24 04:00 Laboratory Data at Discharge: WBC 7.80 thou/uL (4.3-10.9) 02/10/24 04:23 Hgb 13.4 g/dL (13.6-17.9) L D 02/10/24 04:23 Hct 40.2 % (39.6-49.0) 02/10/24 04:23 Plt Count 179 thou/uL (152-406) 02/10/24 04:23 Sodium 135 mEq/L (136-145) L 02/10/24 04:23 Potassium 3.0 mEq/L (3.5-5.1) L 02/10/24 04:23 BUN 46 mg/dL (7-18) H 02/10/24 04:23 Creatinine 2.68 mg/dL (0.70-1.30) H 02/10/24 04:23 Glucose 139 mg/dL (74-106) H 02/10/24 04:23 Phosphorus 3.3 mg/dL (2.5-4.9) 02/09/24 05:44 Magnesium 1.8 mg/dL (1.6-2.4) 02/10/24 04:23 Triglycerides 216 mg/dL (<150) H 02/09/24 05:44 Cholesterol 194 mg/dL (<200) 02/09/24 05:44 HDL Cholesterol 39 mg/dL (40-60) L 02/09/24 05:44 Cholesterol/HDL Ratio 4.97 02/09/24 05:44 Home Medications: Metformin ER [Glucophage ER*] 1,000 mg PO BID 09/03/23 Doxazosin [Cardura*] 2 mg PO BID #60 tab 09/06/23 Hydrocodone 5/APAP 325 [Preemption 5/325*] 1 tab PO Q6H PRN #10 tab 09/06/23 Insulin Glargine,Hum.rec.anlog [Lantus Solostar] 10 unit SQ BEDTIME #3 ml 09/06/23 Losartan Potassium [Cozaar*] 50 mg PO BID #60 tab 09/06/23 Aspirin [Aspirin EC] 81 mg PO 30 MIN BEFORE HS 30 Days #30 mg 02/10/24 Atenolol [Tenormin] 100 mg PO DAILY #30 tab 02/10/24 Atorvastatin Calcium [Lipitor] 40 mg PO BEDTIME 30 Days #30 tab 02/10/24 Folic Acid 1 mg PO DAILY 30 Days #30 tab 02/10/24 Insulin 70/30 NPH/Reg Human [Novolin 70/30*] 30 unit SQ BIDAC 30 Days #10 vial 02/10/24 Insulin Regular, Human [Novolin R] See Protocol SQ ACHS ml 02/10/24 Meclizine HCl 25 mg PO Q8H PRN #90 tab 02/10/24 Ondansetron [Zofran] 4 mg PO Q6H PRN 10 Days #30 tab 02/10/24 New Medications: Aspirin [Aspirin EC] 81 mg PO 30 MIN BEFORE HS 30 Days #30 mg Folic Acid 1 mg PO DAILY 30 Days #30 tab Atorvastatin Calcium [Lipitor] 40 mg PO BEDTIME 30 Days #30 tab Meclizine HCl 25 mg PO Q8H PRN #90 tab PRN Reason: dizziness Insulin 70/30 NPH/Reg Human [Novolin 70/30*] 30 unit SQ BIDAC 30 Days #10 vial Atenolol [Tenormin] 100 mg PO DAILY #30 tab Ondansetron [Zofran] 4 mg PO Q6H PRN 10 Days #30 tab PRN Reason: Nausea / Vomiting Physician Discharge Instructions: Patient is a 48-year-old gentleman who presents to the ER respiratory ED with hyperglycemia and hypertension. Patient was also having a headache and vision difficulty. According to the nursing staff patient was staring off into space and he was not really responding appropriately. However, his mentation would fluctuate quite substantially. Patient denies any new complaints at this time and he states has been going on for about the last couple of weeks., And he apparently partial drifting whenever he walks. Patient was also dysmetric. Decision was made to transfer patient to our facility for neurology consultation and further neurowork-up including EEG and MRI. He was evaluated by neurology, he was evaluated by physical therapy, Neurology Discharge medications aspirin, folic acid, and Plavix 75 mg daily and also high- dose statin. We will hold off on antiepileptic medications at this point until EEG is reviewed per neurology follow up in Dr. Francois's clinic within a month. Instructed to keep blood pressure, blood sugar log, follow-up with PCP in 2 to 3 days Recommend strict blood glucose blood pressure control after discharge Assessment Absence seizure Ataxia Blurred vision Malignant hypertension TIA (transient ischemic attack) Diabetes with hyperglycemia MRI of the brain revealed no abnormalities EEG pending Antiepileptic can be DC'd per neurology Continue home medicines as previously prescribed GOAL: Clear understanding of disease process INSTRUCTIONS: Physician Discharge Instructions: -Follow-up with Dr. Francois in 1 month -Follow-up with PCP in 1 to 2 weeks -Please call Dr. Germain at [phone] if any questions regarding hospital stay -Please call nursing station at [phone] if any nursing or medication questions -Return to the emergency room if symptoms worsen Diet: ADA, low sodium Activity: Fall precautions Vital Signs/Physical Exam: Followup: Alonso Francois MD [ASSOCIATE-ACTIVE - CAN ADMIT] - 1-2 Weeks Time spent managing pt's care (in minutes): 45
[2024-02-10] MEDS ORDERED: D10W 125 ML IV PRN (07:54)
[2024-02-10] MEDS: ONDANSETRON 4 MG/2 ML VIAL IV PRN (08:09)
[2024-02-10] MEDS: MECLIZINE HCL 12.5 MG TAB PO PRN (08:09)
[2024-02-10] MEDS: POTASSIUM 25 MEQ EFFERV TAB PO ONE (10:00)
--- NOTE | 2024-02-10 13:24 | ECHO ---
HEIGHT: 6 ft 4 in WEIGHT: 231 lb 8 oz DATE OF STUDY: 02/10/[address]: David Germain MD 2-DIMENSIONAL: YES M.MODE: YES DOPPLER: YES COLOR FLOW: YES TDS: PORTABLE: YES DEFINITY: BUBBLE STUDY: DIAGNOSIS: CONGESTIVE HEART FAILURE CARDIAC HISTORY: CATHERIZATION: NO SURGERY: NO PROSTHETIC VALVE: NO PACEMAKER: NO MEASUREMENTS (cm) DIASTOLIC (NORMALS) SYSTOLIC (NORMALS) IVSd 1.6 (0.6-1.2) LA Diam 3.1 (1.9-4.0) LVEF 60% LVIDd 4.5 (3.5-5.7) LVIDs 3.6 (2.0-3.5) %FS LVPWd 1.7 (0.6-1.2) Ao Diam 3.4 (2.0-3.7) 2 DIMENSIONAL ASSESSMENT: RIGHT ATRIUM: NORMAL LEFT ATRIUM: NORMAL RIGHT VENTRICLE: NORMAL LEFT VENTRICLE: MODERATE LEFT VENTRICULAR HYPERTROPHY TRICUSPID VALVE: TRACE TRICUSPID REGURGITATION MITRAL VALVE: NORMAL PULMONIC VALVE: NORMAL AORTIC VALVE: NORMAL PERICARDIAL EFFUSION: NONE AORTIC ROOT: NORMAL LEFT VENTRICULAR WALL MOTION: NORMAL DOPPLER/COLOR FLOW: GRADE II DIASTOLIC DYSFUNCTION COMMENTS: 1. NORMAL LEFT VENTRICULAR SYSTOLIC FUNCTION, EJECTION FRACTION 60%, NORMAL WALL MOTION 2. GRADE II DIASTOLIC DYSFUNCTION 3. MODERATE CONCENTRIC LEFT VENTRICULAR HYPERTROPHY TECHNOLOGIST: NEDRA JUNIOR
[2024-02-10 16:07] LABS: ALT/SGPT 15 U/L (16-61); AST/SGOT 12 U/L (15-37); Albumin 2.7 g/dL (3.4-5.0); Albumin/Globulin Ratio 0.7 (1.1-1.8); Alkaline Phosphatase 64 U/L (45-117); Bilirubin Total 0.7 mg/dL (0.2-1.0); Globulin 3.9 g/dL (2.3-3.5); Protein, Total 6.6 g/dL (6.4-8.2)
[2024-02-10 16:16] LABS: Bilirubin Direct < 0.2 mg/dL (0-0.2); Bilirubin Indirect, Calculated 0.5 mg/dL (0.2-0.8)
[2024-02-10 16:43] VITALS: BP 141/63; TEMP 98.9
== END 2024-02-10 16:25 | disposition home or self-care (01) | DRG 101 ==
LOC: 2ND 12:09
PROVIDERS: ADMIT Hospitalist; ATTEND Hospitalist
DX: G40.A09 Absence epileptic syndrome, not intractable, without status epilepticus (principal); G45.9 Transient cerebral ischemic attack, unspecified; E11.65 Type 2 diabetes mellitus with hyperglycemia; I10 Essential (primary) hypertension; H53.8 Other visual disturbances; R27.0 Ataxia, unspecified; Z79.4 Long term (current) use of insulin; Z79.82 Long term (current) use of aspirin; Z79.84 Long term (current) use of oral hypoglycemic drugs; Z86.73 Personal history of transient ischemic attack (TIA), and cerebral infarction without residual deficits; Z79.899 Other long term (current) drug therapy
CPT/HCPCS: 36415; 70551; 80048; 80061; 80076; 82947; 83036; 83735; 84100; 85025; 93306; 95816; 97116; 97161; J0360; J1815; J2405; J8597